=== PATIENT | male | born 1955 | race African-American/Black ===

== ENCOUNTER 2018-08-27 10:45 | Inpatient (IN) | payer OTHER, MEDICAID ==
[2018-08-27] VITALS (8 sets, daily range): BP systolic 103–117; BP diastolic 52–74
[~2018-08-27] VITALS: Ht 182.9 cm; Wt 98.5 kg
[2018-08-27] MEDS ORDERED: SODIUM CHLORIDE 0.9% 1000ML BAG (SEPSIS BOLUS) IV ONE (11:15)
[2018-08-27] MEDS ORDERED: PANTOPRAZOLE 80 MG in SODIUM CHLORIDE 0.9% 100 ML IV STA (11:22)
[2018-08-27] MEDS ORDERED: PANTOPRAZOLE SODIUM 40 MG/VIAL IV STA (11:22)
[2018-08-27] MEDS ORDERED: CEFTRIAXONE 1 G PREMIX 50 ML IV ONE (11:30)
[2018-08-27 12:26] LABS: CHLORIDE 102 mEq/L (98-107)
[2018-08-27 12:29] LABS: ETHANOL BLOOD < 10 mg/dL
[2018-08-27 12:32] LABS: BASOPHILS % 0.3 % (0.0-2.0); EOSINOPHILS % 0.2 % (0.0-5.0); HEMATOCRIT. 31.8 % (42.0-52.0); HEMOGLOBIN. 10.4 g/dL (14.0-18.0); LYMPHOCYTES % 18.8 % (20.0-50.0); MEAN PLATELET VOLUME 10.3 fl (7.4-10.4); MONOCYTES % 8.2 % (2.0-8.0); NEUTROPHILS % 72.5 % (40.0-76.0); PLATELET 88 x1000/uL (130-400); RED BLOOD CELL COUNT 3.45 mill/uL (4.7-6.1); RED CELL DISTRIBUTION WIDTH 14.4 % (11.6-14.6)
[2018-08-27 12:35] LABS: INR 1.6; PARTIAL THROMBOPLASTIN TIME 32.8 sec (23.4-31.0); PROTHROMBIN TIME 15.7 sec (9.1-11.1)
[2018-08-27 14:55] LABS: CLARITY URINE CLOUDY (CLEAR); COLOR URINE DARK YELLOW (YELLOW); KETONES URINE TRACE (NEGATIVE); LEUKOCYTE ESTERASE URINE NEGATIVE (NEGATIVE); NITRITE URINE NEGATIVE (NEGATIVE); OCCULT BLOOD URINE NEGATIVE (NEGATIVE); PROTEIN URINE NEGATIVE (NEGATIVE); SPECIFIC GRAVITY URINE 1.021 (1.005-1.030)
[2018-08-27] MEDS ORDERED: SIMETHICONE 40 MG/0.6 ML 30ML ONE (15:51)
[2018-08-27] MEDS ORDERED: MIDAZOLAM HCL 5 MG/5 ML VIAL IV PRN (16:01)
[2018-08-27] MEDS ORDERED: FENTANYL CITRATE/PF 50MCG/ML 2ML VIAL IV PRN (16:02)
[2018-08-27] MEDS ORDERED: FENTANYL CITRATE/PF 50MCG/ML 2ML VIAL ONE (16:06)
[2018-08-27] MEDS ORDERED: MIDAZOLAM HCL 5 MG/5 ML VIAL ONE (16:06)
[2018-08-27] MEDS ORDERED: SODIUM CHLORIDE 0.9% 10ML VIAL ONE (16:12)
[2018-08-27] MEDS: PANTOPRAZOLE SODIUM 40 MG/VIAL IV SCH (18:48)
[2018-08-27 18:53] LABS: HEMATOCRIT 28.7 % (42.0-52.0); HEMOGLOBIN 9.4 g/dL (14.0-18.0)
[2018-08-27] MEDS ORDERED: OCTREOTIDE 1,000 MCG in SODIUM CHLORIDE 0.9% 100 ML IV ONE ×4 (19:30)
[2018-08-27 19:55] LABS: TOTAL IRON BINDING CAPACITY 169 ug/dL (250-450)
[2018-08-27] MEDS ORDERED: ONDANSETRON HCL 4MG/2ML INJ IV PRN (20:00)
[2018-08-27] MEDS ORDERED: ACETAMINOPHEN 325MG TABLET PO PRN (20:00)
[2018-08-27] MEDS ORDERED: DOCUSATE SODIUM 100MG CAPSULE PO PRN (20:00)
[2018-08-27] MEDS ORDERED: LORAZEPAM 2MG/ML CPJ IV PRN (20:00)
[2018-08-27 20:18] LABS: FOLIC ACID (FOLATE) SERUM 6.3 ng/mL (>5.38)
[2018-08-27] MEDS ORDERED: FOLIC ACID 1 MG, THIAMINE HCL 100 MG, MVI, ADULT NO.1 10 ML in DEXTROSE 5% WATER 1,000 ML IV ONE ×4 (21:00)
[2018-08-27] MEDS: SUCRALFATE 1 G/10 ML UDC PO SCH (21:09)
[2018-08-28] VITALS (12 sets, daily range): BP systolic 95–148; BP diastolic 39–83
[2018-08-28 01:10] LABS: HEMATOCRIT 27.6 % (42.0-52.0)
[2018-08-28] MEDS: SUCRALFATE 1 G/10 ML UDC PO SCH ×4 (06:06→21:42)
[2018-08-28 06:54] LABS: BASOPHILS % 0.5 % (0.0-2.0); EOSINOPHILS % 0.5 % (0.0-5.0); HEMATOCRIT. 24.9 % (42.0-52.0); HEMOGLOBIN. 8.6 g/dL (14.0-18.0); INR 1.5; LYMPHOCYTES % 21.6 % (20.0-50.0); MEAN CORPUSCULAR HEMOGLOBIN 31.6 pg (28.0-32.0); MEAN CORPUSCULAR VOLUME 91.5 fL (80.0-94.0); MEAN PLATELET VOLUME 9.9 fl (7.4-10.4); MONOCYTES % 7.7 % (2.0-8.0); NEUTROPHILS % 69.7 % (40.0-76.0); PLATELET 58 x1000/uL (130-400); PROTHROMBIN TIME 15.4 sec (9.1-11.1); RED BLOOD CELL COUNT 2.72 mill/uL (4.7-6.1); RED CELL DISTRIBUTION WIDTH 14.6 % (11.6-14.6)
[2018-08-28 07:00] LABS: CHLORIDE 113 mEq/L (98-107)
[2018-08-28 07:46] LABS: HEPATITIS B SURFACE ANTIGEN NEGATIVE
[2018-08-28 08:16] LABS: HEPATITIS A AB IGM NEGATIVE (NEGATIVE)
[2018-08-28] MEDS: PANTOPRAZOLE SODIUM 40 MG/VIAL IV SCH ×2 (09:20→17:49)
[2018-08-28] MEDS: SODIUM CHLORIDE 0.9% 1,000 ML IV SCH ×2 (09:21→17:00)
[2018-08-28] MEDS ORDERED: THIA100T72 MT (11:24)
[2018-08-28] MEDS ORDERED: HYDR25TA MT (11:24)
[2018-08-28] MEDS ORDERED: FOLI-43 MT (11:24)
[2018-08-28] MEDS ORDERED: NIFE60TA64 MT (11:24)
[2018-08-28] MEDS ORDERED: METO-539 MT (11:24)
[2018-08-28] MEDS ORDERED: POTASSIUM CHLORIDE 20MEQ/PACKET PO NR (11:30)
[2018-08-28] MEDS: METOPROLOL TARTRATE 25MG TABLET PO SCH ×2 (11:32→21:43)
[2018-08-28 13:09] LABS: HEMATOCRIT 25.5 % (42.0-52.0); HEMOGLOBIN 8.6 g/dL (14.0-18.0)
[2018-08-28 18:53] LABS: HEMOGLOBIN 8.5 g/dL (14.0-18.0)
[2018-08-28] MEDS: AMLODIPINE 5MG TABLET PO SCH (21:42)
[2018-08-29] VITALS (14 sets, daily range): BP systolic 108–148; BP diastolic 60–83
[2018-08-29 00:47] LABS: HEMATOCRIT 25.8 % (42.0-52.0); HEMOGLOBIN 8.4 g/dL (14.0-18.0)
[2018-08-29] MEDS: SODIUM CHLORIDE 0.9% 1,000 ML IV SCH (03:13)
[2018-08-29] MEDS: SUCRALFATE 1 G/10 ML UDC PO SCH (06:41)
[2018-08-29 07:14] LABS: BASOPHILS % 0.8 % (0.0-2.0); EOSINOPHILS % 1.7 % (0.0-5.0); HEMOGLOBIN. 8.2 g/dL (14.0-18.0); LYMPHOCYTES % 26.1 % (20.0-50.0); MEAN CORPUSCULAR HEMOGLOBIN 30.7 pg (28.0-32.0); MEAN PLATELET VOLUME 9.7 fl (7.4-10.4); NEUTROPHILS % 62.4 % (40.0-76.0); PLATELET 62 x1000/uL (130-400); RED BLOOD CELL COUNT 2.68 mill/uL (4.7-6.1); RED CELL DISTRIBUTION WIDTH 15.4 % (11.6-14.6)
[2018-08-29 07:19] LABS: INR 1.5; PARTIAL THROMBOPLASTIN TIME 34.6 sec (23.4-31.0); PROTHROMBIN TIME 15.2 sec (9.1-11.1)
[2018-08-29 07:31] LABS: CHLORIDE 114 mEq/L (98-107)
[2018-08-29 07:53] LABS: LDL CHOLESTEROL 66 mg/dL (5-100)
[2018-08-29 07:54] LABS: HDL CHOLESTEROL 28 mg/dL (40-59)
[2018-08-29] MEDS: PANTOPRAZOLE SODIUM 40 MG/VIAL IV SCH (08:31)
[2018-08-29] MEDS ORDERED: SIMETHICONE 40 MG/0.6 ML 30ML ONE (10:23)
[2018-08-29] MEDS ORDERED: MIDAZOLAM HCL 5 MG/5 ML VIAL ONE (10:41)
[2018-08-29] MEDS ORDERED: PROPOFOL 200MG/20ML VIAL IV ONE ×2 (10:42→10:59)
[2018-08-29] MEDS ORDERED: LIDOCAINE HCL/PF 1% 10 MG/ML 5ML VIAL ONE (10:42)
[2018-08-29] MEDS ORDERED: EPHEDRINE SULFATE 50MG/ML VIAL ONE (11:20)
[2018-08-29] MEDS ORDERED: POTASSIUM CHLORIDE 20MEQ TABLET SR PO NR (11:45)
[2018-08-29] MEDS: SODIUM CHL 0.45% + KCL 20MEQ/L 1,000 ML IV SCH (13:31)
[2018-08-29] MEDS: AMLODIPINE 5MG TABLET PO SCH ×2 (13:31→20:54)
[2018-08-29] MEDS: METOPROLOL TARTRATE 25MG TABLET PO SCH ×2 (13:32→20:54)
[2018-08-29] MEDS: PROPRANOLOL HCL 10MG TABLET PO SCH (20:55)
[2018-08-30] VITALS (10 sets, daily range): BP systolic 110–130; BP diastolic 48–72
[2018-08-30] MEDS: SODIUM CHL 0.45% + KCL 20MEQ/L 1,000 ML IV SCH ×2 (01:51→14:37)
[2018-08-30 06:24] LABS: BASOPHILS % 0.7 % (0.0-2.0); EOSINOPHILS % 2.3 % (0.0-5.0); HEMATOCRIT. 25.4 % (42.0-52.0); HEMOGLOBIN. 8.5 g/dL (14.0-18.0); LYMPHOCYTES % 26.1 % (20.0-50.0); MEAN CORPUSCULAR HEMOGLOBIN 31.1 pg (28.0-32.0); MEAN CORPUSCULAR VOLUME 93.2 fL (80.0-94.0); MEAN PLATELET VOLUME 9.6 fl (7.4-10.4); MONOCYTES % 11.4 % (2.0-8.0); NEUTROPHILS % 59.5 % (40.0-76.0); PLATELET 64 x1000/uL (130-400); RED BLOOD CELL COUNT 2.72 mill/uL (4.7-6.1); RED CELL DISTRIBUTION WIDTH 15.2 % (11.6-14.6)
[2018-08-30 06:40] LABS: CHLORIDE 114 mEq/L (98-107)
[2018-08-30] MEDS ORDERED: OMEPRAZOLE 20MG CAPSULE EXTENDED RELEASE PO SCH (06:50)
[2018-08-30] MEDS: PROPRANOLOL HCL 10MG TABLET PO SCH (08:29)
[2018-08-30] MEDS: METOPROLOL TARTRATE 25MG TABLET PO SCH (08:29)
[2018-08-30] MEDS: AMLODIPINE 5MG TABLET PO SCH (08:30)
[2018-08-30] MEDS ORDERED: POTASSIUM CHLORIDE 20MEQ TABLET SR PO NR (10:30)
[2018-08-30 15:50] LABS: HEMATOCRIT 25.9 % (42.0-52.0); HEMOGLOBIN 8.7 g/dL (14.0-18.0)
== END 2018-08-30 16:55 | disposition home or self-care (01) | DRG 441 ==
LOC: ER 10:45 → 3WST 13:45 → EDBEDREQ 14:09 → ENRESERV 14:27 → 3WST 18:38
PROVIDERS: ADMIT Internal Medicine; ATTEND Internal Medicine
PROC: 0DJ08ZZ Inspection of Upper Intestinal Tract, Via Natural or Artificial Opening Endoscopic (ICD-10-PCS; principal; 2018-08-27)
PROC: 30233N1 Transfusion of Nonautologous Red Blood Cells into Peripheral Vein, Percutaneous Approach (ICD-10-PCS; 2018-08-27)
PROC: 30233K1 Transfusion of Nonautologous Frozen Plasma into Peripheral Vein, Percutaneous Approach (ICD-10-PCS; 2018-08-27)
PROC: 06L38CZ Occlusion of Esophageal Vein with Extraluminal Device, Via Natural or Artificial Opening Endoscopic (ICD-10-PCS; 2018-08-29)
DX: K76.6 Portal hypertension (principal); R57.1 Hypovolemic shock; I85.11 Secondary esophageal varices with bleeding; K29.01 Acute gastritis with bleeding; D62 Acute posthemorrhagic anemia; D68.9 Coagulation defect, unspecified; K70.30 Alcoholic cirrhosis of liver without ascites; K44.9 Diaphragmatic hernia without obstruction or gangrene; I10 Essential (primary) hypertension; E88.09 Other disorders of plasma-protein metabolism, not elsewhere classified; K31.89 Other diseases of stomach and duodenum; F10.20 Alcohol dependence, uncomplicated; D69.6 Thrombocytopenia, unspecified; R16.1 Splenomegaly, not elsewhere classified; F12.10 Cannabis abuse, uncomplicated; F17.210 Nicotine dependence, cigarettes, uncomplicated; Z82.49 Family history of ischemic heart disease and other diseases of the circulatory system
CPT/HCPCS: 36415; 71045; 74176; 76700; 80048; 80061; 80076; 82140; 82607; 82728; 82746; 83036; 83540; 83550; 83735; 83880; 84484; 85014; 85018; 86705; 86709; 86803; 86850; 86900; 86920; 86927; 87340; 93005; 93306; 93970; 96365; 96375; 99291; C9113; G0482; J0696; J2250; J2354; J2704; J3010; J3411; J3480; J3490; J7030; J7040; J7050; J7070; P9016; P9017

== ENCOUNTER → 2018-11-09 | Day surgery (SDC) | payer OTHER, MEDICAID ==
[~2018-11-09] MED LIST: FOLI-43 MT; HYDR25TA MT; LIDOCAINE HCL 1% 20ML VIAL (Pyxis) INJ ONE; METO-539 MT; NIFE60TA64 MT; SODIUM BICARBONATE 4% (2.4MEQ) 5ML VIAL IV ONE; THIA100T72 MT
== END | disposition home or self-care (01) ==
LOC: RAD 12:31
PROVIDERS: ATTEND Internal Medicine Gastroenterology
DX: R18.8 Other ascites (principal)
CPT/HCPCS: 49083; J3490

== ENCOUNTER 2019-01-23 06:09 | Emergency (ER) | payer OTHER, MEDICAID ==
[~2019-01-23] VITALS: Ht 182.9 cm; Wt 91.0 kg
[~2019-01-23 06:09] MED LIST changes: -LIDOCAINE HCL 1% 20ML VIAL (Pyxis) INJ ONE; -SODIUM BICARBONATE 4% (2.4MEQ) 5ML VIAL IV ONE
[2019-01-23 07:23] LABS: HEMATOCRIT. 30.4 % (42.0-52.0); HEMOGLOBIN. 10.1 g/dL (14.0-18.0); MEAN CORPUSCULAR HEMOGLOBIN 28.4 pg (28.0-32.0); MEAN CORPUSCULAR VOLUME 85.3 fL (80.0-94.0); MEAN PLATELET VOLUME 8.4 fl (7.4-10.4); PLATELET 122 x1000/uL (130-400); RED BLOOD CELL COUNT 3.57 mill/uL (4.7-6.1); RED CELL DISTRIBUTION WIDTH 16.7 % (11.6-14.6)
[2019-01-23 07:26] LABS: CHLORIDE 111 mEq/L (98-107)
[2019-01-23 07:29] LABS: INR 1.2; PROTHROMBIN TIME 12.2 sec (9.6-11.0)
[2019-01-23 07:51] LABS: PLATELET ESTIMATE SLIGHTLY DECREASED
[2019-01-23] MEDS ORDERED: LIDOCAINE HCL 1% 20ML VIAL (Pyxis) INJ ONE (08:16)
[2019-01-23] MEDS ORDERED: SODIUM BICARBONATE 4% (2.4MEQ) 5ML VIAL IV ONE (08:16)
[2019-01-23 10:15] VITALS: BP 110/63
== END 2019-01-23 10:15 | disposition home or self-care (01) ==
LOC: ER 06:09
DX: R18.8 Other ascites (principal); F17.200 Nicotine dependence, unspecified, uncomplicated; K92.2 Gastrointestinal hemorrhage, unspecified; K74.60 Unspecified cirrhosis of liver; Z79.899 Other long term (current) drug therapy
CPT/HCPCS: 36415; 49083; 80053; 83690; 85025; 85610; 87070; 87075; 87205; 89050; 99285; J3490

== ENCOUNTER 2019-02-03 18:35 | Emergency (ER) | payer MEDICAID, OTHER ==
[~2019-02-03] VITALS: Ht 182.9 cm; Wt 100.0 kg
[2019-02-03 18:59] VITALS: BP 110/60
== END 2019-02-03 21:05 | disposition home or self-care (01) ==
LOC: ER 20:02
DX: S31.113A Laceration without foreign body of abdominal wall, right lower quadrant without penetration into peritoneal cavity, initial encounter (principal); I10 Essential (primary) hypertension; K74.60 Unspecified cirrhosis of liver; F17.200 Nicotine dependence, unspecified, uncomplicated; Z79.899 Other long term (current) drug therapy; X58.XXXA Exposure to other specified factors, initial encounter; Y93.89 Activity, other specified; Y92.89 Other specified places as the place of occurrence of the external cause; Y99.8 Other external cause status
CPT/HCPCS: 12001; 99283

== ENCOUNTER 2019-02-27 06:46 | Emergency (ER) | payer OTHER, MEDICAID ==
[~2019-02-27] VITALS: Ht 182.9 cm; Wt 91.0 kg
[2019-02-27 07:38] LABS: BASOPHILS % 0.9 % (0.0-2.0); EOSINOPHILS % 1.1 % (0.0-5.0); HEMATOCRIT. 30.4 % (42.0-52.0); HEMOGLOBIN. 10.1 g/dL (14.0-18.0); LYMPHOCYTES % 25.9 % (20.0-50.0); MEAN CORPUSCULAR HEMOGLOBIN 28.8 pg (28.0-32.0); MEAN CORPUSCULAR VOLUME 86.8 fL (80.0-94.0); MEAN PLATELET VOLUME 8.2 fl (7.4-10.4); MONOCYTES % 12.7 % (2.0-8.0); NEUTROPHILS % 59.4 % (40.0-76.0); PLATELET 111 x1000/uL (130-400); RED BLOOD CELL COUNT 3.51 mill/uL (4.7-6.1); RED CELL DISTRIBUTION WIDTH 15.6 % (11.6-14.6)
[2019-02-27 07:45] LABS: CHLORIDE 112 mEq/L (98-107)
[2019-02-27 07:48] LABS: INR 1.2; PROTHROMBIN TIME 11.9 sec (9.6-11.0)
[2019-02-27] MEDS ORDERED: LIDOCAINE HCL 1% 20ML VIAL (Pyxis) INJ ONE (08:34)
[2019-02-27] MEDS ORDERED: SODIUM BICARBONATE 4% (2.4MEQ) 5ML VIAL IV ONE (08:34)
[2019-02-27 12:41] VITALS: BP 130/74
== END 2019-02-27 12:47 | disposition home or self-care (01) ==
LOC: ER 07:11
DX: R18.8 Other ascites (principal); K74.60 Unspecified cirrhosis of liver; I10 Essential (primary) hypertension
CPT/HCPCS: 36415; 49083; 80053; 85025; 85610; 87070; 87205; 89050; 99285; J3490

== ENCOUNTER 2019-03-01 06:31 | Emergency (ER) | payer OTHER, MEDICAID ==
[~2019-03-01] VITALS: Ht 182.9 cm; Wt 91.0 kg
[2019-03-01] MEDS ORDERED: LIDOCAINE HCL/PF 1% 10 MG/ML 5ML VIAL IJ ONE (07:15)
[2019-03-01 07:21] LABS: BASOPHILS % 0.4 % (0.0-2.0); EOSINOPHILS % 1.8 % (0.0-5.0); HEMATOCRIT. 31.8 % (42.0-52.0); HEMOGLOBIN. 10.5 g/dL (14.0-18.0); MEAN CORPUSCULAR HEMOGLOBIN 28.7 pg (28.0-32.0); MEAN CORPUSCULAR VOLUME 86.8 fL (80.0-94.0); MEAN PLATELET VOLUME 8.4 fl (7.4-10.4); MONOCYTES % 10.5 % (2.0-8.0); NEUTROPHILS % 56.3 % (40.0-76.0); PLATELET 126 x1000/uL (130-400); RED BLOOD CELL COUNT 3.66 mill/uL (4.7-6.1); RED CELL DISTRIBUTION WIDTH 15.6 % (11.6-14.6)
[2019-03-01 07:22] LABS: CHLORIDE 111 mEq/L (98-107)
[2019-03-01 07:25] LABS: INR 1.2; PROTHROMBIN TIME 12.4 sec (9.6-11.0)
[2019-03-01] MEDS ORDERED: LIDOCAINE HCL 1% 20ML VIAL (Pyxis) INJ ONE (08:26)
[2019-03-01] MEDS ORDERED: SODIUM BICARBONATE 4% (2.4MEQ) 5ML VIAL IV ONE (08:26)
[2019-03-01 09:36] VITALS: BP 100/62
== END 2019-03-01 12:27 | disposition home or self-care (01) ==
LOC: ER 06:31
DX: S31.119A Laceration without foreign body of abdominal wall, unspecified quadrant without penetration into peritoneal cavity, initial encounter (principal); T85.638A Leakage of other specified internal prosthetic devices, implants and grafts, initial encounter; R18.8 Other ascites; I10 Essential (primary) hypertension; F17.200 Nicotine dependence, unspecified, uncomplicated; K76.9 Liver disease, unspecified; K92.2 Gastrointestinal hemorrhage, unspecified; Z79.899 Other long term (current) drug therapy; X58.XXXA Exposure to other specified factors, initial encounter; Y93.89 Activity, other specified; Y92.89 Other specified places as the place of occurrence of the external cause; Y99.8 Other external cause status
CPT/HCPCS: 12001; 36415; 49083; 71045; 80053; 83605; 84145; 84484; 85025; 85610; 87040; 93005; 99284; J3490

== ENCOUNTER 2019-03-11 06:35 | Emergency (ER) | payer OTHER, MEDICAID ==
[~2019-03-11] VITALS: Ht 182.9 cm; Wt 98.0 kg
[2019-03-11 08:21] LABS: BASOPHILS % 0.4 % (0.0-2.0); EOSINOPHILS % 1.3 % (0.0-5.0); HEMATOCRIT. 31.9 % (42.0-52.0); HEMOGLOBIN. 10.6 g/dL (14.0-18.0); LYMPHOCYTES % 25.6 % (20.0-50.0); MEAN CORPUSCULAR VOLUME 87.1 fL (80.0-94.0); MEAN PLATELET VOLUME 8.1 fl (7.4-10.4); MONOCYTES % 9.3 % (2.0-8.0); NEUTROPHILS % 63.4 % (40.0-76.0); PLATELET 105 x1000/uL (130-400); RED BLOOD CELL COUNT 3.67 mill/uL (4.7-6.1); RED CELL DISTRIBUTION WIDTH 15.4 % (11.6-14.6)
[2019-03-11 08:23] LABS: CHLORIDE 110 mEq/L (98-107)
[2019-03-11 08:27] LABS: INR 1.2; PROTHROMBIN TIME 11.9 sec (9.6-11.0)
[2019-03-11] MEDS ORDERED: LIDOCAINE HCL 1% 20ML VIAL (Pyxis) INJ ONE (08:52)
[2019-03-11] MEDS ORDERED: SODIUM BICARBONATE 4% (2.4MEQ) 5ML VIAL IV ONE (08:52)
[2019-03-11 10:55] VITALS: BP 132/69
== END 2019-03-11 11:01 | disposition home or self-care (01) ==
LOC: ER 06:35
DX: R18.8 Other ascites (principal); F17.210 Nicotine dependence, cigarettes, uncomplicated
CPT/HCPCS: 36415; 49083; 80053; 85025; 85610; 87070; 87075; 87205; 89050; 99285; J3490

== ENCOUNTER 2019-03-19 06:04 | Emergency (ER) | payer OTHER, MEDICAID ==
[~2019-03-19] VITALS: Ht 182.9 cm; Wt 95.9 kg
[2019-03-19 07:31] LABS: BASOPHILS % 0.8 % (0.0-2.0); EOSINOPHILS % 1.1 % (0.0-5.0); HEMATOCRIT. 29.8 % (42.0-52.0); HEMOGLOBIN. 10.1 g/dL (14.0-18.0); LYMPHOCYTES % 29.4 % (20.0-50.0); MEAN CORPUSCULAR HEMOGLOBIN 29.6 pg (28.0-32.0); MEAN CORPUSCULAR VOLUME 87.2 fL (80.0-94.0); MONOCYTES % 11.3 % (2.0-8.0); NEUTROPHILS % 57.4 % (40.0-76.0); PLATELET 105 x1000/uL (130-400); RED BLOOD CELL COUNT 3.42 mill/uL (4.7-6.1); RED CELL DISTRIBUTION WIDTH 15.4 % (11.6-14.6)
[2019-03-19 07:36] LABS: INR 1.1; PARTIAL THROMBOPLASTIN TIME 28.6 sec (23.4-31.0); PROTHROMBIN TIME 11.6 sec (9.6-11.0)
[2019-03-19 07:37] LABS: CHLORIDE 110 mEq/L (98-107)
[2019-03-19] MEDS: SODIUM POLYSTYRENE SULFONATE 15 G/60 ML BOT PO ONE (08:45)
[2019-03-19] MEDS: SODIUM BICARBONATE 8.4% 1 MEQ/ML 50ML SYR IV ONE (08:45)
[2019-03-19] MEDS ORDERED: LIDOCAINE HCL 1% 20ML VIAL (Pyxis) INJ ONE (08:58)
[2019-03-19] MEDS ORDERED: SODIUM BICARBONATE 4% (2.4MEQ) 5ML VIAL IV ONE (08:58)
[2019-03-19 09:03] LABS: CLARITY URINE CLEAR (CLEAR); COLOR URINE DARK YELLOW (YELLOW); KETONES URINE TRACE (NEGATIVE); LEUKOCYTE ESTERASE URINE TRACE (NEGATIVE); NITRITE URINE NEGATIVE (NEGATIVE); OCCULT BLOOD URINE NEGATIVE (NEGATIVE); PH URINE 5.5 (4.5-8.0); PROTEIN URINE NEGATIVE (NEGATIVE); SPECIFIC GRAVITY URINE 1.025 (1.005-1.030)
[2019-03-19 12:38] VITALS: BP 124/63
== END 2019-03-19 13:00 | disposition home or self-care (01) ==
LOC: ER 06:04
DX: R18.8 Other ascites (principal); K74.60 Unspecified cirrhosis of liver; E87.5 Hyperkalemia; Z79.899 Other long term (current) drug therapy
CPT/HCPCS: 36415; 49083; 71045; 80053; 81003; 83690; 83880; 84484; 85025; 85610; 85730; 93005; 96374; 99284; J3490; 51701

== ENCOUNTER 2019-03-19 21:26 | Inpatient (IN) | payer OTHER, MEDICAID ==
[~2019-03-19] VITALS: Ht 182.9 cm; Wt 83.7 kg
[2019-03-19] MEDS ORDERED: METOCLOPRAMIDE HCL 10MG/2ML VIAL IV STA (22:42)
[2019-03-19] MEDS ORDERED: MORPHINE SULFATE 4 MG/ML CPJ (NOT FOR IM USE) IV STA (22:42)
[2019-03-19] MEDS ORDERED: SODIUM CHLORIDE 0.9% 1,000 ML IV ONE (22:42)
[2019-03-19] MEDS ORDERED: DIATR MEGLU/DIATRIZOATE SOLN 30ML ONE (23:15)
[2019-03-19 23:17] LABS: BASOPHILS % 0.3 % (0.0-2.0); EOSINOPHILS % 0.3 % (0.0-5.0); HEMATOCRIT. 34.8 % (42.0-52.0); HEMOGLOBIN. 11.5 g/dL (14.0-18.0); LYMPHOCYTES % 15.3 % (20.0-50.0); MEAN CORPUSCULAR HEMOGLOBIN 29.1 pg (28.0-32.0); MEAN CORPUSCULAR VOLUME 87.6 fL (80.0-94.0); MEAN PLATELET VOLUME 8.1 fl (7.4-10.4); MONOCYTES % 9.1 % (2.0-8.0); PLATELET 133 x1000/uL (130-400); RED BLOOD CELL COUNT 3.97 mill/uL (4.7-6.1); RED CELL DISTRIBUTION WIDTH 15.2 % (11.6-14.6)
[2019-03-19 23:20] LABS: CHLORIDE 108 mEq/L (98-107)
[2019-03-19 23:24] LABS: INR 1.1; PROTHROMBIN TIME 11.4 sec (9.6-11.0)
[2019-03-19 23:25] LABS: CLARITY URINE CLOUDY (CLEAR); COLOR URINE DARK YELLOW (YELLOW); KETONES URINE TRACE (NEGATIVE); LEUKOCYTE ESTERASE URINE TRACE (NEGATIVE); NITRITE URINE NEGATIVE (NEGATIVE); OCCULT BLOOD URINE NEGATIVE (NEGATIVE); PROTEIN URINE NEGATIVE (NEGATIVE); SPECIFIC GRAVITY URINE 1.026 (1.005-1.030)
[2019-03-20 09:00] VITALS: BP 114/87
[2019-03-20] MEDS ORDERED: HYDROCODONE/ACETAMINOPHEN 5/325MG TABLET PO PRN (09:30)
[2019-03-20] MEDS ORDERED: ONDANSETRON HCL 4MG/2ML INJ IV PRN (09:30)
[2019-03-20] MEDS ORDERED: CLONIDINE 0.1MG TABLET PO PRN (09:30)
[2019-03-20] MEDS ORDERED: ACETAMINOPHEN 325MG TABLET PO PRN (09:30)
[2019-03-20] MEDS ORDERED: IPRATROPIUM/ALBUTEROL 0.5-3(2.5)MG/3ML NEB INH PRN (09:30)
[2019-03-20] MEDS ORDERED: LORAZEPAM 0.5MG TABLET PO PRN (09:30)
[2019-03-20] MEDS ORDERED: MORPHINE SULFATE 2 MG/ML CPJ (NOT FOR IM USE) IV PRN (09:30)
[2019-03-20 10:05] VITALS: BP 114/87
[2019-03-20] MEDS ORDERED: LIDOCAINE HCL 1% 20ML VIAL (Pyxis) INJ ONE (11:00)
[2019-03-20] MEDS ORDERED: SODIUM BICARBONATE 4% (2.4MEQ) 5ML VIAL IV ONE (11:01)
[2019-03-20 14:30] LABS: *AMPHETAMINES SCREEN URINE NEGATIVE (NEGATIVE); *BARBITURATES SCREEN URINE NEGATIVE (NEGATIVE); *BENZODIAZEPINES SCREEN URINE NEGATIVE (NEGATIVE); *COCAINE SCREEN URINE NEGATIVE (NEGATIVE)
[2019-03-20 14:31] LABS: CANNABINOID URINE SCREEN NEGATIVE (NEGATIVE); METHADONE URINE SCREEN NEGATIVE (NEGATIVE); OPIATES URINE SCREEN NEGATIVE (NEGATIVE); PHENCYCLIDINE URINE SCREEN NEGATIVE (NEGATIVE)
[2019-03-20 16:00] VITALS: BP 122/71
[2019-03-20 20:00] VITALS: BP 122/64
[2019-03-20] MEDS: PROPRANOLOL HCL 10MG TABLET PO SCH (22:02)
[2019-03-20] MEDS: PANTOPRAZOLE 40MG DR TABLET PO SCH (22:22)
[2019-03-20] MEDS: THIAMINE HCL 100MG TABLET PO SCH (22:23)
[2019-03-20] MEDS: FOLIC ACID 1MG TABLET PO SCH (22:23)
[2019-03-21] VITALS (7 sets, daily range): BP systolic 81–110; BP diastolic 40–64
[2019-03-21 07:35] LABS: CHLORIDE 107 mEq/L (98-107)
[2019-03-21 07:45] LABS: BASOPHILS % 0.4 % (0.0-2.0); EOSINOPHILS % 1.5 % (0.0-5.0); HEMOGLOBIN. 8.8 g/dL (14.0-18.0); LYMPHOCYTES % 24.6 % (20.0-50.0); MEAN CORPUSCULAR HEMOGLOBIN 29.5 pg (28.0-32.0); MEAN CORPUSCULAR VOLUME 87.1 fL (80.0-94.0); MONOCYTES % 13.1 % (2.0-8.0); NEUTROPHILS % 60.4 % (40.0-76.0); PLATELET 85 x1000/uL (130-400); RED BLOOD CELL COUNT 2.99 mill/uL (4.7-6.1); RED CELL DISTRIBUTION WIDTH 14.8 % (11.6-14.6)
[2019-03-21] MEDS: PANTOPRAZOLE 40MG DR TABLET PO SCH ×2 (08:21→16:17)
[2019-03-21] MEDS: FOLIC ACID 1MG TABLET PO SCH (08:22)
[2019-03-21] MEDS: THIAMINE HCL 100MG TABLET PO SCH (08:22)
[2019-03-21] MEDS: PROPRANOLOL HCL 10MG TABLET PO SCH ×2 (08:22→21:33)
[2019-03-21] MEDS ORDERED: ALBUMIN HUMAN 25GM/100ML (25%) IV NR (15:30)
[2019-03-22] VITALS (15 sets, daily range): BP systolic 80–122; BP diastolic 44–78
[2019-03-22 04:16] LABS: HIV SCREEN 4G Non Reactive (Non Reactive)
[2019-03-22 05:39] LABS: CHLORIDE 105 mEq/L (98-107)
[2019-03-22 05:41] LABS: BASOPHILS % 0.7 % (0.0-2.0); EOSINOPHILS % 2.3 % (0.0-5.0); HEMATOCRIT. 29.6 % (42.0-52.0); HEMOGLOBIN. 9.9 g/dL (14.0-18.0); LYMPHOCYTES % 33.2 % (20.0-50.0); MEAN CORPUSCULAR HEMOGLOBIN 29.3 pg (28.0-32.0); MEAN CORPUSCULAR VOLUME 87.5 fL (80.0-94.0); MEAN PLATELET VOLUME 8.3 fl (7.4-10.4); MONOCYTES % 13.7 % (2.0-8.0); NEUTROPHILS % 50.1 % (40.0-76.0); PLATELET 104 x1000/uL (130-400); RED BLOOD CELL COUNT 3.38 mill/uL (4.7-6.1); RED CELL DISTRIBUTION WIDTH 14.6 % (11.6-14.6)
[2019-03-22] MEDS: PROPRANOLOL HCL 10MG TABLET PO SCH ×2 (09:00→21:41)
[2019-03-22] MEDS: FOLIC ACID 1MG TABLET PO SCH (09:02)
[2019-03-22] MEDS: THIAMINE HCL 100MG TABLET PO SCH (09:02)
[2019-03-22] MEDS: PANTOPRAZOLE 40MG DR TABLET PO SCH ×2 (09:02→17:25)
[2019-03-22] MEDS ORDERED: SODIUM BICARBONATE 4% (2.4MEQ) 5ML VIAL IV ONE (15:21)
[2019-03-22] MEDS ORDERED: LIDOCAINE HCL 1% 20ML VIAL (Pyxis) INJ ONE (15:22)
[2019-03-23] VITALS (7 sets, daily range): BP systolic 91–115; BP diastolic 55–74
[2019-03-23 06:51] LABS: HEMATOCRIT. 28.5 % (42.0-52.0); HEMOGLOBIN. 9.6 g/dL (14.0-18.0); MEAN CORPUSCULAR HEMOGLOBIN 29.2 pg (28.0-32.0); MEAN CORPUSCULAR VOLUME 86.6 fL (80.0-94.0); PLATELET 96 x1000/uL (130-400); RED BLOOD CELL COUNT 3.29 mill/uL (4.7-6.1); RED CELL DISTRIBUTION WIDTH 14.7 % (11.6-14.6)
[2019-03-23 06:53] LABS: CHLORIDE 106 mEq/L (98-107)
[2019-03-23] MEDS: PANTOPRAZOLE 40MG DR TABLET PO SCH (08:02)
[2019-03-23] MEDS: FOLIC ACID 1MG TABLET PO SCH (08:02)
[2019-03-23] MEDS: THIAMINE HCL 100MG TABLET PO SCH (08:02)
[2019-03-23] MEDS: PROPRANOLOL HCL 10MG TABLET PO SCH ×2 (08:46→10:24)
[2019-03-23 13:27] LABS: PLATELET ESTIMATE DECREASED
== END 2019-03-23 12:15 | disposition home or self-care (01) | DRG 433 ==
LOC: ER 21:26 → 6EST 03-20 03:01 → EDBEDREQTM 03-20 03:05 → EDBEDREQ 03-20 03:05 → EDBEDREQDT 03-20 03:05 → EDBEDREQSVC 03-20 03:05 → ENRESERV 03-20 07:46 → 3WST 03-21 17:33
PROVIDERS: ADMIT Internal Medicine; ATTEND Internal Medicine
PROC: 0W9G3ZZ Drainage of Peritoneal Cavity, Percutaneous Approach (ICD-10-PCS; principal; 2019-03-20)
PROC: 0W9G3ZZ Drainage of Peritoneal Cavity, Percutaneous Approach (ICD-10-PCS; 2019-03-22)
DX: K70.31 Alcoholic cirrhosis of liver with ascites (principal); D68.9 Coagulation defect, unspecified; I85.10 Secondary esophageal varices without bleeding; K76.6 Portal hypertension; N20.0 Calculus of kidney; E88.09 Other disorders of plasma-protein metabolism, not elsewhere classified; D64.9 Anemia, unspecified; F17.210 Nicotine dependence, cigarettes, uncomplicated; I10 Essential (primary) hypertension; K31.89 Other diseases of stomach and duodenum; K44.9 Diaphragmatic hernia without obstruction or gangrene; I86.4 Gastric varices; K57.30 Diverticulosis of large intestine without perforation or abscess without bleeding; I95.9 Hypotension, unspecified; F19.10 Other psychoactive substance abuse, uncomplicated; Z79.899 Other long term (current) drug therapy
CPT/HCPCS: 36415; 49083; 71045; 74177; 76705; 80048; 80305; 82270; 83605; 87389; 96361; 96374; 96375; 99285; J2270; J2765; J3490; J7030; P9047; Q9963; Q9967

== ENCOUNTER 2019-04-02 05:50 | Emergency (ER) | payer OTHER, MEDICAID ==
[~2019-04-02] VITALS: Ht 182.9 cm; Wt 84.0 kg
[~2019-04-02 05:50] MED LIST changes: -HYDR25TA MT; -METO-539 MT; -NIFE60TA64 MT
[2019-04-02] MEDS ORDERED: FUROSEMIDE 40MG/4ML VIAL IVP ONE (09:00)
[2019-04-02 09:06] LABS: BASOPHILS % 0.9 % (0.0-2.0); EOSINOPHILS % 0.3 % (0.0-5.0); HEMATOCRIT. 31.6 % (42.0-52.0); HEMOGLOBIN. 10.7 g/dL (14.0-18.0); LYMPHOCYTES % 22.8 % (20.0-50.0); MEAN CORPUSCULAR HEMOGLOBIN 29.5 pg (28.0-32.0); MEAN CORPUSCULAR VOLUME 86.8 fL (80.0-94.0); MEAN PLATELET VOLUME 7.8 fl (7.4-10.4); MONOCYTES % 8.8 % (2.0-8.0); NEUTROPHILS % 67.2 % (40.0-76.0); PLATELET 122 x1000/uL (130-400); RED BLOOD CELL COUNT 3.64 mill/uL (4.7-6.1)
[2019-04-02 09:08] LABS: CHLORIDE 111 mEq/L (98-107); INR 1.1; PROTHROMBIN TIME 11.5 sec (9.6-11.0)
[2019-04-02] MEDS ORDERED: SODIUM BICARBONATE 4% (2.4MEQ) 5ML VIAL IV ONE (10:01)
[2019-04-02] MEDS ORDERED: LIDOCAINE HCL 1% 20ML VIAL (Pyxis) INJ ONE (10:01)
[2019-04-02 11:36] VITALS: BP 120/67
== END 2019-04-02 12:33 | disposition home or self-care (01) ==
LOC: ER 05:50
DX: R18.8 Other ascites (principal); D64.9 Anemia, unspecified; E87.5 Hyperkalemia; K74.60 Unspecified cirrhosis of liver; Z79.899 Other long term (current) drug therapy; F17.200 Nicotine dependence, unspecified, uncomplicated
CPT/HCPCS: 36415; 49083; 80053; 85025; 85610; 86850; 86900; 86901; 96374; 99284; J1940; J3490

== ENCOUNTER 2019-04-05 06:35 | Emergency (ER) | payer OTHER, MEDICAID ==
[~2019-04-05] VITALS: Ht 182.9 cm; Wt 84.0 kg
[2019-04-05 07:57] LABS: BASOPHILS % 1.1 % (0.0-2.0); EOSINOPHILS % 1.7 % (0.0-5.0); HEMATOCRIT. 32.5 % (42.0-52.0); HEMOGLOBIN. 10.9 g/dL (14.0-18.0); LYMPHOCYTES % 28.6 % (20.0-50.0); MEAN CORPUSCULAR HEMOGLOBIN 29.1 pg (28.0-32.0); MEAN CORPUSCULAR VOLUME 87.1 fL (80.0-94.0); MEAN PLATELET VOLUME 7.7 fl (7.4-10.4); MONOCYTES % 9.9 % (2.0-8.0); NEUTROPHILS % 58.7 % (40.0-76.0); PLATELET 124 x1000/uL (130-400); RED BLOOD CELL COUNT 3.73 mill/uL (4.7-6.1); RED CELL DISTRIBUTION WIDTH 14.9 % (11.6-14.6)
[2019-04-05 08:03] LABS: CHLORIDE 109 mEq/L (98-107)
[2019-04-05 08:06] LABS: INR 1.1; PARTIAL THROMBOPLASTIN TIME 28.1 sec (23.4-31.0); PROTHROMBIN TIME 11.5 sec (9.6-11.0)
[2019-04-05] MEDS ORDERED: SODIUM BICARBONATE 8.4% 1 MEQ/ML 50ML SYR IV ONE ×2 (08:30→12:15)
[2019-04-05] MEDS ORDERED: SODIUM BICARBONATE 4% (2.4MEQ) 5ML VIAL IV ONE (08:53)
[2019-04-05] MEDS ORDERED: LIDOCAINE HCL 1% 20ML VIAL (Pyxis) INJ ONE (08:54)
[2019-04-05 11:43] LABS: CHLORIDE 111 mEq/L (98-107)
[2019-04-05] MEDS ORDERED: SODIUM POLYSTYRENE SULFONATE 15 G/60 ML BOT PO ONE (12:15)
[2019-04-05 13:29] VITALS: BP 110/62
== END 2019-04-05 13:35 | disposition home or self-care (01) ==
LOC: ER 06:35
DX: R18.8 Other ascites (principal); E87.5 Hyperkalemia; F17.200 Nicotine dependence, unspecified, uncomplicated; I10 Essential (primary) hypertension; Z98.890 Other specified postprocedural states
CPT/HCPCS: 36415; 49083; 71045; 80048; 80053; 83690; 85025; 85610; 85730; 93005; 96374; 96376; 99285; J3490

== ENCOUNTER 2019-04-11 06:29 | Emergency (ER) | payer OTHER ==
[~2019-04-11] VITALS: Ht 182.9 cm; Wt 84.0 kg
[2019-04-11] MEDS ORDERED: LIDOCAINE HCL 1% 20ML VIAL (Pyxis) INJ INJ STA (07:38)
[2019-04-11] MEDS ORDERED: SODIUM BICARBONATE 4% (2.4MEQ) 5ML VIAL IV ONE (09:06)
[2019-04-11] MEDS ORDERED: LIDOCAINE HCL 1% 20ML VIAL (Pyxis) INJ ONE (09:07)
[2019-04-11 10:48] LABS: BASOPHILS % 1.1 % (0.0-2.0); EOSINOPHILS % 1.1 % (0.0-5.0); HEMATOCRIT. 32.5 % (42.0-52.0); HEMOGLOBIN. 10.7 g/dL (14.0-18.0); MEAN CORPUSCULAR HEMOGLOBIN 28.5 pg (28.0-32.0); MEAN CORPUSCULAR VOLUME 86.5 fL (80.0-94.0); MEAN PLATELET VOLUME 7.6 fl (7.4-10.4); MONOCYTES % 10.8 % (2.0-8.0); PLATELET 103 x1000/uL (130-400); RED BLOOD CELL COUNT 3.76 mill/uL (4.7-6.1); RED CELL DISTRIBUTION WIDTH 15.1 % (11.6-14.6)
[2019-04-11 10:53] LABS: CHLORIDE 110 mEq/L (98-107)
[2019-04-11 10:57] LABS: INR 1.1; PROTHROMBIN TIME 11.4 sec (9.6-11.0)
[2019-04-11 11:25] VITALS: BP 113/66
== END 2019-04-11 11:29 | disposition home or self-care (01) ==
LOC: ER 06:29
DX: R18.8 Other ascites (principal); K76.9 Liver disease, unspecified; F17.210 Nicotine dependence, cigarettes, uncomplicated
CPT/HCPCS: 36415; 49083; 80053; 85025; 85610; 87070; 87075; 87205; 89050; 99285; J3490

== ENCOUNTER 2019-04-17 06:27 | Emergency (ER) | payer OTHER ==
[~2019-04-17] VITALS: Ht 182.9 cm; Wt 84.0 kg
[2019-04-17 07:12] LABS: HEMATOCRIT. 31.1 % (42.0-52.0); HEMOGLOBIN. 10.4 g/dL (14.0-18.0); LYMPHOCYTES % 28.9 % (20.0-50.0); MEAN CORPUSCULAR HEMOGLOBIN 28.9 pg (28.0-32.0); MEAN CORPUSCULAR VOLUME 86.9 fL (80.0-94.0); MEAN PLATELET VOLUME 8.1 fl (7.4-10.4); MONOCYTES % 10.8 % (2.0-8.0); NEUTROPHILS % 57.3 % (40.0-76.0); PLATELET 94 x1000/uL (130-400); RED BLOOD CELL COUNT 3.58 mill/uL (4.7-6.1); RED CELL DISTRIBUTION WIDTH 14.7 % (11.6-14.6)
[2019-04-17 07:17] LABS: CLARITY URINE CLEAR (CLEAR); COLOR URINE YELLOW (YELLOW); KETONES URINE NEGATIVE (NEGATIVE); LEUKOCYTE ESTERASE URINE NEGATIVE (NEGATIVE); NITRITE URINE NEGATIVE (NEGATIVE); OCCULT BLOOD URINE NEGATIVE (NEGATIVE); PH URINE 5.5 (4.5-8.0); PROTEIN URINE NEGATIVE (NEGATIVE); SPECIFIC GRAVITY URINE 1.025 (1.005-1.030)
[2019-04-17 07:21] LABS: CHLORIDE 112 mEq/L (98-107)
[2019-04-17 07:22] LABS: INR 1.1; PROTHROMBIN TIME 11.7 sec (9.6-11.0)
[2019-04-17] MEDS ORDERED: LIDOCAINE HCL 1% 20ML VIAL (Pyxis) INJ ONE (07:27)
[2019-04-17] MEDS ORDERED: SODIUM BICARBONATE 4% (2.4MEQ) 5ML VIAL IV ONE (07:28)
[2019-04-17 09:47] VITALS: BP 98/60
== END 2019-04-18 19:46 | disposition home or self-care (01) ==
LOC: ER 06:43
DX: R18.8 Other ascites (principal); K76.9 Liver disease, unspecified; F17.210 Nicotine dependence, cigarettes, uncomplicated
CPT/HCPCS: 36415; 49083; 80053; 81003; 85025; 85610; 87070; 87075; 87205; 89050; 99285; J3490

== ENCOUNTER 2019-04-24 06:27 | Emergency (ER) | payer OTHER, MEDICAID ==
[~2019-04-24] VITALS: Ht 190.5 cm; Wt 79.0 kg
[2019-04-24 07:27] LABS: BASOPHILS % 0.8 % (0.0-2.0); EOSINOPHILS % 2.3 % (0.0-5.0); HEMATOCRIT. 29.8 % (42.0-52.0); HEMOGLOBIN. 10.1 g/dL (14.0-18.0); LYMPHOCYTES % 26.8 % (20.0-50.0); MEAN CORPUSCULAR HEMOGLOBIN 28.9 pg (28.0-32.0); MEAN CORPUSCULAR VOLUME 85.4 fL (80.0-94.0); MEAN PLATELET VOLUME 7.9 fl (7.4-10.4); MONOCYTES % 10.7 % (2.0-8.0); NEUTROPHILS % 59.4 % (40.0-76.0); PLATELET 98 x1000/uL (130-400); RED BLOOD CELL COUNT 3.49 mill/uL (4.7-6.1); RED CELL DISTRIBUTION WIDTH 14.6 % (11.6-14.6)
[2019-04-24 07:35] LABS: CHLORIDE 110 mEq/L (98-107)
[2019-04-24 07:36] LABS: INR 1.1; PROTHROMBIN TIME 11.7 sec (9.6-11.0)
[2019-04-24] MEDS ORDERED: LIDOCAINE HCL 1% 20ML VIAL (Pyxis) INJ ONE (08:08)
[2019-04-24] MEDS ORDERED: SODIUM BICARBONATE 4% (2.4MEQ) 5ML VIAL IV ONE (08:09)
[2019-04-24 09:44] VITALS: BP 99/66
== END 2019-04-24 09:46 | disposition home or self-care (01) ==
LOC: ER 06:27
DX: R18.8 Other ascites (principal); K76.9 Liver disease, unspecified
CPT/HCPCS: 36415; 49083; 80053; 85025; 85610; 99284; J3490

== ENCOUNTER 2019-04-29 06:41 | Emergency (ER) | payer OTHER, MEDICAID ==
[~2019-04-29] VITALS: Ht 182.9 cm; Wt 80.0 kg
[2019-04-29 09:20] LABS: BASOPHILS % 0.6 % (0.0-2.0); EOSINOPHILS % 1.7 % (0.0-5.0); HEMATOCRIT. 35.7 % (42.0-52.0); HEMOGLOBIN. 11.8 g/dL (14.0-18.0); LYMPHOCYTES % 26.5 % (20.0-50.0); MEAN CORPUSCULAR VOLUME 87.7 fL (80.0-94.0); MEAN PLATELET VOLUME 8.2 fl (7.4-10.4); NEUTROPHILS % 62.2 % (40.0-76.0); PLATELET 113 x1000/uL (130-400); RED BLOOD CELL COUNT 4.07 mill/uL (4.7-6.1); RED CELL DISTRIBUTION WIDTH 15.1 % (11.6-14.6)
[2019-04-29 09:27] LABS: INR 1.1; PARTIAL THROMBOPLASTIN TIME 29.2 sec (23.4-31.0)
[2019-04-29 12:34] VITALS: BP 105/59
== END 2019-04-29 12:54 | disposition home or self-care (01) ==
LOC: ER 07:21
DX: R18.8 Other ascites (principal)
CPT/HCPCS: 36415; 49083; 85025; 85610; 85730; 99285; J3490

== ENCOUNTER 2019-05-07 06:28 | Emergency (ER) | payer OTHER, MEDICAID ==
[~2019-05-07] VITALS: Ht 182.9 cm; Wt 80.0 kg
[2019-05-07 08:24] LABS: BASOPHILS % 0.6 % (0.0-2.0); EOSINOPHILS % 0.9 % (0.0-5.0); HEMATOCRIT. 34.1 % (42.0-52.0); MEAN CORPUSCULAR HEMOGLOBIN 27.9 pg (28.0-32.0); MEAN CORPUSCULAR VOLUME 86.9 fL (80.0-94.0); MEAN PLATELET VOLUME 7.7 fl (7.4-10.4); MONOCYTES % 10.9 % (2.0-8.0); NEUTROPHILS % 64.6 % (40.0-76.0); PLATELET 106 x1000/uL (130-400); RED BLOOD CELL COUNT 3.93 mill/uL (4.7-6.1); RED CELL DISTRIBUTION WIDTH 15.1 % (11.6-14.6)
[2019-05-07 08:31] LABS: CHLORIDE 111 mEq/L (98-107)
[2019-05-07 08:33] LABS: INR 1.1; PROTHROMBIN TIME 11.5 sec (9.6-11.0)
[2019-05-07] MEDS ORDERED: SODIUM BICARBONATE 4% (2.4MEQ) 5ML VIAL IV ONE (08:37)
[2019-05-07] MEDS ORDERED: LIDOCAINE HCL 1% 20ML VIAL (Pyxis) INJ ONE (08:37)
[2019-05-07 12:30] VITALS: BP 118/84
== END 2019-05-07 13:12 | disposition home or self-care (01) ==
LOC: ER 06:28
DX: R18.8 Other ascites (principal); K76.9 Liver disease, unspecified; Z87.19 Personal history of other diseases of the digestive system
CPT/HCPCS: 36415; 49083; 80053; 83690; 85025; 85610; 86850; 86900; 86901; 99285; J3490

== ENCOUNTER 2019-05-13 07:05 | Emergency (ER) | payer OTHER, MEDICAID ==
[~2019-05-13] VITALS: Ht 182.9 cm; Wt 81.0 kg
[2019-05-13 10:03] LABS: CHLORIDE 112 mEq/L (98-107)
[2019-05-13 10:13] LABS: INR 1.1; PROTHROMBIN TIME 11.5 sec (9.6-11.0)
[2019-05-13 10:17] LABS: BASOPHILS % 0.9 % (0.0-2.0); EOSINOPHILS % 0.7 % (0.0-5.0); HEMOGLOBIN. 11.3 g/dL (14.0-18.0); LYMPHOCYTES % 25.5 % (20.0-50.0); MEAN CORPUSCULAR HEMOGLOBIN 28.7 pg (28.0-32.0); MEAN CORPUSCULAR VOLUME 86.8 fL (80.0-94.0); MONOCYTES % 10.1 % (2.0-8.0); NEUTROPHILS % 62.8 % (40.0-76.0); PLATELET 105 x1000/uL (130-400); RED BLOOD CELL COUNT 3.92 mill/uL (4.7-6.1); RED CELL DISTRIBUTION WIDTH 14.9 % (11.6-14.6)
[2019-05-13 11:00] VITALS: BP 79/81
[2019-05-13] MEDS ORDERED: LIDOCAINE HCL 1% 20ML VIAL (Pyxis) INJ ONE (11:25)
[2019-05-13] MEDS ORDERED: SODIUM BICARBONATE 4% (2.4MEQ) 5ML VIAL IV ONE (11:25)
== END 2019-05-13 13:51 | disposition home or self-care (01) ==
LOC: ER 07:26
DX: K74.60 Unspecified cirrhosis of liver (principal); R18.8 Other ascites; E87.5 Hyperkalemia; D64.9 Anemia, unspecified; F17.210 Nicotine dependence, cigarettes, uncomplicated; Z71.6 Tobacco abuse counseling
CPT/HCPCS: 36415; 49083; 80053; 83690; 85025; 85610; 87070; 87075; 87205; 89050; 99285; 99406; J3490

== ENCOUNTER 2019-05-17 06:40 | Emergency (ER) | payer OTHER, MEDICAID ==
[~2019-05-17] VITALS: Ht 198.1 cm; Wt 80.0 kg
[2019-05-17 07:59] LABS: BASOPHILS % 0.4 % (0.0-2.0); EOSINOPHILS % 2.2 % (0.0-5.0); HEMOGLOBIN. 10.5 g/dL (14.0-18.0); LYMPHOCYTES % 29.8 % (20.0-50.0); MEAN CORPUSCULAR HEMOGLOBIN 28.4 pg (28.0-32.0); MEAN CORPUSCULAR VOLUME 86.2 fL (80.0-94.0); MONOCYTES % 12.3 % (2.0-8.0); NEUTROPHILS % 55.3 % (40.0-76.0); PLATELET 108 x1000/uL (130-400); RED BLOOD CELL COUNT 3.71 mill/uL (4.7-6.1); RED CELL DISTRIBUTION WIDTH 14.6 % (11.6-14.6)
[2019-05-17 08:02] LABS: CHLORIDE 109 mEq/L (98-107)
[2019-05-17 08:05] LABS: INR 1.2
[2019-05-17] MEDS ORDERED: LIDOCAINE HCL 1% 20ML VIAL (Pyxis) INJ ONE (08:50)
[2019-05-17] MEDS ORDERED: SODIUM BICARBONATE 4% (2.4MEQ) 5ML VIAL IV ONE (08:50)
[2019-05-17 10:36] VITALS: BP 112/62
== END 2019-05-17 10:39 | disposition home or self-care (01) ==
LOC: ER 06:40
DX: R18.8 Other ascites (principal); F17.200 Nicotine dependence, unspecified, uncomplicated; Z98.890 Other specified postprocedural states
CPT/HCPCS: 36415; 49083; 80053; 85025; 85610; 87070; 87075; 87205; 89050; 99285; J3490

== ENCOUNTER 2019-05-23 06:05 | Emergency (ER) | payer OTHER, MEDICAID ==
[~2019-05-23] VITALS: Ht 182.9 cm; Wt 80.0 kg
[2019-05-23 07:57] VITALS: BP 99/55
[2019-05-23] MEDS ORDERED: LIDOCAINE HCL 1% 20ML VIAL (Pyxis) INJ ONE (07:59)
[2019-05-23] MEDS ORDERED: SODIUM BICARBONATE 4% (2.4MEQ) 5ML VIAL IV ONE (07:59)
[2019-05-23 08:01] LABS: BASOPHILS % 0.5 % (0.0-2.0); EOSINOPHILS % 1.5 % (0.0-5.0); HEMATOCRIT. 33.1 % (42.0-52.0); LYMPHOCYTES % 28.2 % (20.0-50.0); MEAN CORPUSCULAR HEMOGLOBIN 28.7 pg (28.0-32.0); MEAN CORPUSCULAR VOLUME 86.7 fL (80.0-94.0); MEAN PLATELET VOLUME 8.1 fl (7.4-10.4); MONOCYTES % 11.9 % (2.0-8.0); NEUTROPHILS % 57.9 % (40.0-76.0); PLATELET 122 x1000/uL (130-400); RED BLOOD CELL COUNT 3.82 mill/uL (4.7-6.1); RED CELL DISTRIBUTION WIDTH 14.8 % (11.6-14.6)
[2019-05-23 08:08] LABS: CHLORIDE 109 mEq/L (98-107)
[2019-05-23 08:09] LABS: INR 1.1; PROTHROMBIN TIME 11.6 sec (9.6-11.0)
== END 2019-05-23 09:38 | disposition home or self-care (01) ==
LOC: ER 06:05
DX: R18.8 Other ascites (principal); K76.9 Liver disease, unspecified; I11.9 Hypertensive heart disease without heart failure; F17.210 Nicotine dependence, cigarettes, uncomplicated
CPT/HCPCS: 36415; 49083; 80053; 85025; 85610; 87070; 87075; 87205; 89050; 99285; J3490

== ENCOUNTER 2019-05-30 06:34 | Emergency (ER) | payer OTHER, MEDICAID ==
[~2019-05-30] VITALS: Ht 182.9 cm; Wt 63.0 kg
[2019-05-30 08:21] LABS: BASOPHILS % 0.6 % (0.0-2.0); EOSINOPHILS % 2.9 % (0.0-5.0); HEMATOCRIT. 33.5 % (42.0-52.0); HEMOGLOBIN. 10.9 g/dL (14.0-18.0); LYMPHOCYTES % 31.6 % (20.0-50.0); MEAN CORPUSCULAR HEMOGLOBIN 28.2 pg (28.0-32.0); MEAN CORPUSCULAR VOLUME 86.9 fL (80.0-94.0); MEAN PLATELET VOLUME 8.3 fl (7.4-10.4); MONOCYTES % 10.7 % (2.0-8.0); NEUTROPHILS % 54.2 % (40.0-76.0); PLATELET 122 x1000/uL (130-400); RED BLOOD CELL COUNT 3.86 mill/uL (4.7-6.1)
[2019-05-30] MEDS ORDERED: LIDOCAINE HCL 1% 20ML VIAL (Pyxis) INJ ONE (08:25)
[2019-05-30] MEDS ORDERED: SODIUM BICARBONATE 4% (2.4MEQ) 5ML VIAL IV ONE (08:26)
[2019-05-30 08:29] LABS: CHLORIDE 113 mEq/L (98-107)
[2019-05-30 08:30] LABS: INR 1.1; PROTHROMBIN TIME 11.4 sec (9.6-11.0)
[2019-05-30 10:13] VITALS: BP 105/56
== END 2019-05-30 10:27 | disposition home or self-care (01) ==
LOC: ER 06:34
DX: R18.8 Other ascites (principal); K74.60 Unspecified cirrhosis of liver; I10 Essential (primary) hypertension; F17.210 Nicotine dependence, cigarettes, uncomplicated
CPT/HCPCS: 36415; 49083; 80053; 85025; 85610; 99285; J3490

== ENCOUNTER 2019-06-06 06:15 | Emergency (ER) | payer OTHER, MEDICAID ==
[~2019-06-06] VITALS: Ht 182.9 cm; Wt 80.0 kg
[2019-06-06 08:51] LABS: BASOPHILS % 1.2 % (0.0-2.0); EOSINOPHILS % 2.9 % (0.0-5.0); HEMATOCRIT. 31.3 % (42.0-52.0); HEMOGLOBIN. 10.2 g/dL (14.0-18.0); LYMPHOCYTES % 33.6 % (20.0-50.0); MEAN CORPUSCULAR HEMOGLOBIN 28.4 pg (28.0-32.0); MEAN CORPUSCULAR VOLUME 86.9 fL (80.0-94.0); MEAN PLATELET VOLUME 8.3 fl (7.4-10.4); MONOCYTES % 10.6 % (2.0-8.0); NEUTROPHILS % 51.7 % (40.0-76.0); PLATELET 114 x1000/uL (130-400); RED CELL DISTRIBUTION WIDTH 14.5 % (11.6-14.6)
[2019-06-06 08:57] LABS: CHLORIDE 115 mEq/L (98-107); INR 1.1; PROTHROMBIN TIME 11.4 sec (9.6-11.0)
[2019-06-06 13:00] VITALS: BP 100/59
== END 2019-06-06 13:24 | disposition home or self-care (01) ==
LOC: ER 06:15
DX: R18.8 Other ascites (principal); K74.60 Unspecified cirrhosis of liver; F17.210 Nicotine dependence, cigarettes, uncomplicated; Z71.6 Tobacco abuse counseling
CPT/HCPCS: 36415; 49083; 87075; 99285; 99406

== ENCOUNTER 2019-06-11 07:56 | Inpatient (IN) | payer OTHER, MEDICAID ==
[~2019-06-11] VITALS: Ht 182.9 cm; Wt 80.8 kg
[2019-06-11] MEDS ORDERED: SODIUM CHLORIDE 0.9% 1000ML BAG (SEPSIS BOLUS) IV ONE (08:45)
[2019-06-11] MEDS ORDERED: SODIUM CHLORIDE 0.9% 1,000 ML IV ONE (08:57)
[2019-06-11] MEDS ORDERED: ALBUMIN HUMAN 25GM/100ML (25%) IV ONE (09:00)
[2019-06-11 09:25] LABS: BASOPHILS % 0.3 % (0.0-2.0); EOSINOPHILS % 0.5 % (0.0-5.0); HEMATOCRIT. 34.9 % (42.0-52.0); HEMOGLOBIN. 11.3 g/dL (14.0-18.0); LYMPHOCYTES % 10.2 % (20.0-50.0); MEAN CORPUSCULAR HEMOGLOBIN 27.7 pg (28.0-32.0); MEAN CORPUSCULAR VOLUME 85.5 fL (80.0-94.0); MEAN PLATELET VOLUME 8.6 fl (7.4-10.4); MONOCYTES % 9.5 % (2.0-8.0); NEUTROPHILS % 79.5 % (40.0-76.0); PLATELET 122 x1000/uL (130-400); RED BLOOD CELL COUNT 4.08 mill/uL (4.7-6.1); RED CELL DISTRIBUTION WIDTH 14.6 % (11.6-14.6)
[2019-06-11 09:32] LABS: CHLORIDE 113 mEq/L (98-107)
[2019-06-11 09:35] LABS: INR 1.1; PROTHROMBIN TIME 11.4 sec (9.6-11.0)
[2019-06-11] MEDS ORDERED: CEFTRIAXONE 1 G PREMIX 50 ML IV SCH (09:45)
[2019-06-11 11:07] LABS: CLARITY URINE CLOUDY (CLEAR); COLOR URINE DARK YELLOW (YELLOW); KETONES URINE 1+ (NEGATIVE); LEUKOCYTE ESTERASE URINE 1+ (NEGATIVE); NITRITE URINE NEGATIVE (NEGATIVE); OCCULT BLOOD URINE NEGATIVE (NEGATIVE); PROTEIN URINE 1+ (NEGATIVE); SPECIFIC GRAVITY URINE 1.026 (1.005-1.030)
[2019-06-11] MEDS ORDERED: AZITHROMYCIN 500 MG in DEXT 5% WATER 250 ML IV SCH (14:15)
[2019-06-11 17:30] VITALS: BP 94/56
[2019-06-11 17:33] VITALS: BP 94/56
[2019-06-11] MEDS ORDERED: TRAMADOL 50MG TABLET PO PRN (18:00)
[2019-06-11] MEDS ORDERED: SODIUM POLYSTYRENE SULFONATE 15 G/60 ML BOT PO ONE (18:00)
[2019-06-11 20:00] VITALS: BP 94/51
[2019-06-11] MEDS ORDERED: SODIUM POLYSTYRENE SULFONATE 15 G/60 ML BOT PO NR (20:00)
[2019-06-11] MEDS ORDERED: ALBUMIN HUMAN 12.5GM/50ML (25%) IV NR (20:00)
[2019-06-11] MEDS ORDERED: MIDODRINE HCL 2.5MG TABLET PO SCH (21:00)
[2019-06-11] MEDS ORDERED: CITRIC ACID/SODIUM CITRATE SOLN 30ML UDC PO SCH (21:00)
[2019-06-11 22:00] VITALS: BP 86/59
[2019-06-11 22:38] LABS: BG BASE EXCESS -8.2 mmol/L (-2.0-2.0); BG CARBOXYHEMOGLOBIN 0.3 % (0.5-1.5); BG FRACTION INSPIRED OXYGEN 21; BG HCO3 ACT 14.7 mmol/L (22.0-26.0); BG METHEMOGLOBIN 0.2 % (0.0-1.5); BG OXYHEMOGLOBIN 97.5 % (94.0-97.0); BG PCO2 22.7 mmHg (35.0-45.0); BG PH 7.429 (7.350-7.450); BG PO2 114.5 mmHg (75.0-100.0); BG SAMPLE SITE LEFT RADIAL; BG TOTAL HEMOGLOBIN 9.5 g/dL (12.0-18.0); BG VENT MODE ROOM AIR
[2019-06-12] VITALS (8 sets, daily range): BP systolic 79–94; BP diastolic 44–64
[2019-06-12 08:05] LABS: BASOPHILS % 0.8 % (0.0-2.0); EOSINOPHILS % 2.2 % (0.0-5.0); HEMATOCRIT. 28.9 % (42.0-52.0); HEMOGLOBIN. 9.4 g/dL (14.0-18.0); LYMPHOCYTES % 23.9 % (20.0-50.0); MEAN CORPUSCULAR HEMOGLOBIN 28.4 pg (28.0-32.0); MEAN CORPUSCULAR VOLUME 87.2 fL (80.0-94.0); MEAN PLATELET VOLUME 8.5 fl (7.4-10.4); MONOCYTES % 10.9 % (2.0-8.0); NEUTROPHILS % 62.2 % (40.0-76.0); PLATELET 98 x1000/uL (130-400); RED BLOOD CELL COUNT 3.31 mill/uL (4.7-6.1); RED CELL DISTRIBUTION WIDTH 14.9 % (11.6-14.6)
[2019-06-12 08:15] LABS: PHOSPHORUS 3.6 mg/dL (2.5-4.9)
[2019-06-12] MEDS: PANTOPRAZOLE SODIUM 40 MG/VIAL IV SCH (09:44)
[2019-06-12] MEDS: MIDODRINE HCL 5MG TABLET PO SCH ×3 (09:44→17:19)
[2019-06-12] MEDS ORDERED: ALBUMIN HUMAN 25GM/100ML (25%) IV SCH ×2 (11:00→22:00)
[2019-06-12] MEDS ORDERED: LIDOCAINE HCL 1% 20ML VIAL (Pyxis) INJ ONE (11:23)
[2019-06-12] MEDS ORDERED: SODIUM BICARBONATE 4% (2.4MEQ) 5ML VIAL IV ONE (11:23)
[2019-06-12] MEDS: CEFTRIAXONE 1 G PREMIX 50 ML IV SCH (16:07)
[2019-06-12] MEDS ORDERED: MIDODRINE HCL 5MG TABLET PO SCH (21:15)
[2019-06-13] VITALS (12 sets, daily range): BP systolic 78–104; BP diastolic 41–56
[2019-06-13 04:06] LABS: *AMPHETAMINES SCREEN URINE NEGATIVE (NEGATIVE); *BARBITURATES SCREEN URINE NEGATIVE (NEGATIVE)
[2019-06-13 04:07] LABS: *BENZODIAZEPINES SCREEN URINE NEGATIVE (NEGATIVE); *COCAINE SCREEN URINE NEGATIVE (NEGATIVE); CANNABINOID URINE SCREEN NEGATIVE (NEGATIVE); METHADONE URINE SCREEN NEGATIVE (NEGATIVE); OPIATES URINE SCREEN NEGATIVE (NEGATIVE); PHENCYCLIDINE URINE SCREEN NEGATIVE (NEGATIVE)
[2019-06-13] MEDS: MIDODRINE HCL 5MG TABLET PO SCH ×3 (05:15→21:40)
[2019-06-13 07:07] LABS: BASOPHILS % 0.5 % (0.0-2.0); EOSINOPHILS % 2.3 % (0.0-5.0); HEMATOCRIT. 23.8 % (42.0-52.0); HEMOGLOBIN. 7.9 g/dL (14.0-18.0); LYMPHOCYTES % 35.1 % (20.0-50.0); MEAN CORPUSCULAR HEMOGLOBIN 28.2 pg (28.0-32.0); MEAN PLATELET VOLUME 8.5 fl (7.4-10.4); MONOCYTES % 11.6 % (2.0-8.0); NEUTROPHILS % 50.5 % (40.0-76.0); PLATELET 65 x1000/uL (130-400); RED CELL DISTRIBUTION WIDTH 14.1 % (11.6-14.6)
[2019-06-13 08:24] LABS: CHLORIDE 117 mEq/L (98-107)
[2019-06-13 08:31] LABS: PHOSPHORUS 3.5 mg/dL (2.5-4.9)
[2019-06-13] MEDS ORDERED: ALBUMIN HUMAN 25GM/100ML (25%) IV NR (09:30)
[2019-06-13] MEDS: PANTOPRAZOLE SODIUM 40 MG/VIAL IV SCH (09:42)
[2019-06-13] MEDS: CEFTRIAXONE 1 G PREMIX 50 ML IV SCH (12:15)
[2019-06-13] MEDS: CEFAZOLIN 1000MG PREMIX 50 ML IV SCH (23:16)
[2019-06-14] VITALS (11 sets, daily range): BP systolic 95–127; BP diastolic 53–68
[2019-06-14] MEDS: MIDODRINE HCL 5MG TABLET PO SCH ×3 (05:28→21:29)
[2019-06-14] MEDS: CEFAZOLIN 1000MG PREMIX 50 ML IV SCH ×3 (06:19→22:46)
[2019-06-14 06:46] LABS: BASOPHILS % 0.5 % (0.0-2.0); EOSINOPHILS % 3.2 % (0.0-5.0); HEMATOCRIT. 24.3 % (42.0-52.0); HEMOGLOBIN. 8.2 g/dL (14.0-18.0); LYMPHOCYTES % 30.7 % (20.0-50.0); MEAN CORPUSCULAR HEMOGLOBIN 28.5 pg (28.0-32.0); MEAN CORPUSCULAR VOLUME 84.4 fL (80.0-94.0); MEAN PLATELET VOLUME 8.2 fl (7.4-10.4); MONOCYTES % 11.8 % (2.0-8.0); NEUTROPHILS % 53.8 % (40.0-76.0); PLATELET 63 x1000/uL (130-400); RED BLOOD CELL COUNT 2.87 mill/uL (4.7-6.1); RED CELL DISTRIBUTION WIDTH 14.1 % (11.6-14.6)
[2019-06-14] MEDS: OMEPRAZOLE 20MG CAPSULE EXTENDED RELEASE PO SCH (09:28)
[2019-06-14 09:36] LABS: CHLORIDE 117 mEq/L (98-107)
[2019-06-14 09:44] LABS: PHOSPHORUS 2.2 mg/dL (2.5-4.9)
[2019-06-14] MEDS: POTASSIUM-SODIUM PHOSPHATE POWDER PACKET PO SCH ×2 (15:02→18:21)
[2019-06-15] VITALS (9 sets, daily range): BP systolic 91–117; BP diastolic 44–71
[2019-06-15] MEDS: MIDODRINE HCL 5MG TABLET PO SCH ×2 (05:39→14:16)
[2019-06-15] MEDS: CEFAZOLIN 1000MG PREMIX 50 ML IV SCH ×2 (06:41→14:17)
[2019-06-15 07:52] LABS: HEMOGLOBIN. 8.4 g/dL (14.0-18.0); MEAN CORPUSCULAR HEMOGLOBIN 28.5 pg (28.0-32.0); MEAN CORPUSCULAR VOLUME 85.4 fL (80.0-94.0); MEAN PLATELET VOLUME 8.1 fl (7.4-10.4); PLATELET 64 x1000/uL (130-400); RED BLOOD CELL COUNT 2.93 mill/uL (4.7-6.1)
[2019-06-15 08:11] LABS: CHLORIDE 116 mEq/L (98-107)
[2019-06-15 08:18] LABS: PHOSPHORUS 2.4 mg/dL (2.5-4.9)
[2019-06-15] MEDS: OMEPRAZOLE 20MG CAPSULE EXTENDED RELEASE PO SCH (08:49)
[2019-06-15] MEDS: POTASSIUM-SODIUM PHOSPHATE POWDER PACKET PO SCH (08:50)
[2019-06-15] MEDS ORDERED: FUROSEMIDE 20MG TABLET PO SCH (12:00)
[2019-06-15 21:30] LABS: PLATELET ESTIMATE DECREASED
== END 2019-06-15 16:55 | disposition home or self-care (01) | DRG 871 ==
LOC: ER 07:56 → 5EST 12:01 → EDBEDREQTM 12:04 → EDBEDREQ 12:04 → ENRESERV 15:28
PROVIDERS: ADMIT Internal Medicine; ATTEND Internal Medicine
PROC: 0W9G3ZZ Drainage of Peritoneal Cavity, Percutaneous Approach (ICD-10-PCS; principal; 2019-06-12)
DX: A41.9 Sepsis, unspecified organism (principal); E43 Unspecified severe protein-calorie malnutrition; N39.0 Urinary tract infection, site not specified; N17.9 Acute kidney failure, unspecified; K76.6 Portal hypertension; D68.9 Coagulation defect, unspecified; I50.22 Chronic systolic (congestive) heart failure; I42.9 Cardiomyopathy, unspecified; E87.3 Alkalosis; N20.0 Calculus of kidney; E87.5 Hyperkalemia; D64.9 Anemia, unspecified; D69.6 Thrombocytopenia, unspecified; K70.31 Alcoholic cirrhosis of liver with ascites; F10.10 Alcohol abuse, uncomplicated; I95.89 Other hypotension; I11.0 Hypertensive heart disease with heart failure; I34.0 Nonrheumatic mitral (valve) insufficiency; F17.210 Nicotine dependence, cigarettes, uncomplicated; I25.10 Atherosclerotic heart disease of native coronary artery without angina pectoris; Z82.49 Family history of ischemic heart disease and other diseases of the circulatory system; I25.2 Old myocardial infarction; Z68.24 Body mass index [BMI] 24.0-24.9, adult; Z79.899 Other long term (current) drug therapy
CPT/HCPCS: 36415; 36600; 49083; 71045; 80048; 80305; 81003; 82375; 82805; 83605; 83735; 84100; 84145; 84300; 84484; 87077; 87186; 93005; 93306; 97161; 99291; C9113; J0456; J0690; J0696; J3490; J7030; J7060; P9047

== ENCOUNTER 2019-06-17 06:21 | Emergency (ER) | payer OTHER, MEDICAID ==
[~2019-06-17] VITALS: Ht 182.9 cm; Wt 79.0 kg
[2019-06-17 08:31] LABS: CHLORIDE 113 mEq/L (98-107)
[2019-06-17 08:34] LABS: INR 1.2; PROTHROMBIN TIME 12.2 sec (9.6-11.0)
[2019-06-17 08:35] LABS: BASOPHILS % 0.4 % (0.0-2.0); EOSINOPHILS % 2.8 % (0.0-5.0); HEMATOCRIT. 26.9 % (42.0-52.0); HEMOGLOBIN. 8.9 g/dL (14.0-18.0); LYMPHOCYTES % 24.3 % (20.0-50.0); MEAN CORPUSCULAR HEMOGLOBIN 28.1 pg (28.0-32.0); MEAN CORPUSCULAR VOLUME 85.3 fL (80.0-94.0); MEAN PLATELET VOLUME 8.3 fl (7.4-10.4); MONOCYTES % 12.3 % (2.0-8.0); NEUTROPHILS % 60.2 % (40.0-76.0); PLATELET 86 x1000/uL (130-400); RED BLOOD CELL COUNT 3.15 mill/uL (4.7-6.1); RED CELL DISTRIBUTION WIDTH 14.5 % (11.6-14.6)
[2019-06-17] MEDS ORDERED: SODIUM BICARBONATE 4% (2.4MEQ) 5ML VIAL IV ONE (09:04)
[2019-06-17] MEDS ORDERED: LIDOCAINE HCL 1% 20ML VIAL (Pyxis) INJ ONE (09:05)
[2019-06-17] MEDS ORDERED: ALBUMIN HUMAN 25GM/100ML (25%) IV ONE (10:30)
[2019-06-17] MEDS ORDERED: ALBUMIN HUMAN 25GM/100ML (25%) IV SCH (10:30)
[2019-06-17 12:24] VITALS: BP 103/75
== END 2019-06-17 12:26 | disposition home or self-care (01) ==
LOC: ER 06:21
DX: K70.31 Alcoholic cirrhosis of liver with ascites (principal); F10.21 Alcohol dependence, in remission; I10 Essential (primary) hypertension
CPT/HCPCS: 36415; 49083; 80053; 85025; 85610; 99285; J3490; P9047

== ENCOUNTER 2019-06-21 06:17 | Emergency (ER) | payer OTHER, MEDICAID ==
[~2019-06-21] VITALS: Ht 182.9 cm; Wt 80.0 kg
[2019-06-21 07:52] LABS: BASOPHILS % 0.7 % (0.0-2.0); EOSINOPHILS % 2.9 % (0.0-5.0); HEMATOCRIT. 26.2 % (42.0-52.0); HEMOGLOBIN. 8.6 g/dL (14.0-18.0); LYMPHOCYTES % 24.3 % (20.0-50.0); MEAN CORPUSCULAR HEMOGLOBIN 28.2 pg (28.0-32.0); MEAN CORPUSCULAR VOLUME 85.9 fL (80.0-94.0); MEAN PLATELET VOLUME 8.1 fl (7.4-10.4); MONOCYTES % 8.9 % (2.0-8.0); NEUTROPHILS % 63.2 % (40.0-76.0); PLATELET 104 x1000/uL (130-400); RED BLOOD CELL COUNT 3.05 mill/uL (4.7-6.1); RED CELL DISTRIBUTION WIDTH 14.8 % (11.6-14.6)
[2019-06-21 07:59] LABS: CHLORIDE 113 mEq/L (98-107)
[2019-06-21 08:02] LABS: INR 1.2
[2019-06-21 10:17] VITALS: BP 112/56
== END 2019-06-21 10:20 | disposition home or self-care (01) ==
LOC: ER 06:17
DX: R18.8 Other ascites (principal); K72.90 Hepatic failure, unspecified without coma; F17.200 Nicotine dependence, unspecified, uncomplicated; Z79.899 Other long term (current) drug therapy
CPT/HCPCS: 36415; 49083; 80053; 85025; 85610; 87070; 87075; 87205; 89050; 99285; J3490

== ENCOUNTER 2019-06-28 07:14 | Emergency (ER) | payer OTHER, MEDICAID ==
[~2019-06-28] VITALS: Ht 182.9 cm; Wt 79.0 kg
[2019-06-28 08:55] LABS: BASOPHILS % 0.5 % (0.0-2.0); EOSINOPHILS % 0.8 % (0.0-5.0); HEMATOCRIT. 28.2 % (42.0-52.0); HEMOGLOBIN. 9.3 g/dL (14.0-18.0); LYMPHOCYTES % 21.3 % (20.0-50.0); MEAN CORPUSCULAR HEMOGLOBIN 28.5 pg (28.0-32.0); MEAN CORPUSCULAR VOLUME 85.7 fL (80.0-94.0); MEAN PLATELET VOLUME 8.2 fl (7.4-10.4); MONOCYTES % 14.2 % (2.0-8.0); NEUTROPHILS % 63.2 % (40.0-76.0); PLATELET 98 x1000/uL (130-400); RED BLOOD CELL COUNT 3.29 mill/uL (4.7-6.1); RED CELL DISTRIBUTION WIDTH 15.3 % (11.6-14.6)
[2019-06-28 09:01] LABS: CHLORIDE 113 mEq/L (98-107)
[2019-06-28 09:04] LABS: INR 1.1; PARTIAL THROMBOPLASTIN TIME 28.1 sec (23.4-31.0); PROTHROMBIN TIME 11.6 sec (9.6-11.0)
[2019-06-28] MEDS ORDERED: LIDOCAINE HCL 1% 20ML VIAL (Pyxis) INJ ONE (09:34)
[2019-06-28] MEDS ORDERED: SODIUM BICARBONATE 4% (2.4MEQ) 5ML VIAL IV ONE (09:35)
[2019-06-28 11:38] VITALS: BP 109/63
== END 2019-06-28 12:05 | disposition home or self-care (01) ==
LOC: ER 07:14
DX: K72.90 Hepatic failure, unspecified without coma (principal); R18.8 Other ascites
CPT/HCPCS: 36415; 49083; 71045; 80053; 83690; 83880; 85025; 85610; 85730; 99285; J3490; 99284

== ENCOUNTER 2019-07-05 06:07 | Emergency (ER) | payer OTHER, MEDICAID ==
[~2019-07-05] VITALS: Ht 182.9 cm; Wt 80.0 kg
[2019-07-05 06:54] LABS: BASOPHILS % 1.1 % (0.0-2.0); EOSINOPHILS % 2.4 % (0.0-5.0); HEMATOCRIT. 28.3 % (42.0-52.0); HEMOGLOBIN. 9.4 g/dL (14.0-18.0); LYMPHOCYTES % 23.6 % (20.0-50.0); MEAN CORPUSCULAR HEMOGLOBIN 28.3 pg (28.0-32.0); MEAN CORPUSCULAR VOLUME 85.7 fL (80.0-94.0); MEAN PLATELET VOLUME 7.6 fl (7.4-10.4); MONOCYTES % 12.7 % (2.0-8.0); NEUTROPHILS % 60.2 % (40.0-76.0); PLATELET 121 x1000/uL (130-400); RED BLOOD CELL COUNT 3.31 mill/uL (4.7-6.1); RED CELL DISTRIBUTION WIDTH 15.6 % (11.6-14.6)
[2019-07-05 07:01] LABS: CHLORIDE 113 mEq/L (98-107)
[2019-07-05 07:02] LABS: INR 1.1; PROTHROMBIN TIME 11.4 sec (9.6-11.0)
[2019-07-05] MEDS ORDERED: SODIUM BICARBONATE 4% (2.4MEQ) 5ML VIAL IV ONE (07:40)
[2019-07-05] MEDS ORDERED: LIDOCAINE HCL 1% 20ML VIAL (Pyxis) INJ ONE (07:40)
[2019-07-05 08:45] VITALS: BP 105/66
== END 2019-07-05 09:36 | disposition home or self-care (01) ==
LOC: ER 06:07
DX: K74.60 Unspecified cirrhosis of liver (principal); F17.200 Nicotine dependence, unspecified, uncomplicated
CPT/HCPCS: 36415; 49083; 80053; 85025; 85610; 99285; J3490; 99283

== ENCOUNTER 2019-07-11 06:01 | Emergency (ER) | payer OTHER, MEDICAID ==
[~2019-07-11] VITALS: Ht 182.9 cm; Wt 80.0 kg
[2019-07-11 07:03] LABS: BASOPHILS % 1.1 % (0.0-2.0); EOSINOPHILS % 2.3 % (0.0-5.0); HEMATOCRIT. 31.7 % (42.0-52.0); HEMOGLOBIN. 10.3 g/dL (14.0-18.0); LYMPHOCYTES % 25.5 % (20.0-50.0); MEAN CORPUSCULAR HEMOGLOBIN 27.9 pg (28.0-32.0); MEAN CORPUSCULAR VOLUME 86.1 fL (80.0-94.0); MEAN PLATELET VOLUME 8.2 fl (7.4-10.4); MONOCYTES % 11.7 % (2.0-8.0); NEUTROPHILS % 59.4 % (40.0-76.0); PLATELET 122 x1000/uL (130-400); RED BLOOD CELL COUNT 3.68 mill/uL (4.7-6.1); RED CELL DISTRIBUTION WIDTH 15.6 % (11.6-14.6)
[2019-07-11 07:10] LABS: CHLORIDE 109 mEq/L (98-107)
[2019-07-11 07:16] LABS: CLARITY URINE CLOUDY (CLEAR); COLOR URINE DARK YELLOW (YELLOW); KETONES URINE TRACE (NEGATIVE); LEUKOCYTE ESTERASE URINE 1+ (NEGATIVE); NITRITE URINE NEGATIVE (NEGATIVE); OCCULT BLOOD URINE NEGATIVE (NEGATIVE); PROTEIN URINE 1+ (NEGATIVE); SPECIFIC GRAVITY URINE 1.023 (1.005-1.030)
[2019-07-11 07:30] LABS: INR 1.1; PROTHROMBIN TIME 11.7 sec (9.6-11.0)
[2019-07-11 07:44] VITALS: BP 136/73
[2019-07-11] MEDS ORDERED: ALBUMIN HUMAN 12.5GM/50ML (25%) IV NR (08:00)
[2019-07-11] MEDS ORDERED: SODIUM BICARBONATE 4% (2.4MEQ) 5ML VIAL IV ONE (08:21)
[2019-07-11] MEDS ORDERED: LIDOCAINE HCL 1% 20ML VIAL (Pyxis) INJ ONE (08:21)
[2019-07-11] MEDS ORDERED: CEFTRIAXONE 1 G PREMIX 50 ML IV ONE (08:30)
== END 2019-07-11 10:40 | disposition home or self-care (01) ==
LOC: ER 06:01
DX: K70.31 Alcoholic cirrhosis of liver with ascites (principal); R60.0 Localized edema; N39.0 Urinary tract infection, site not specified; D69.6 Thrombocytopenia, unspecified; E88.09 Other disorders of plasma-protein metabolism, not elsewhere classified; D64.9 Anemia, unspecified; F17.210 Nicotine dependence, cigarettes, uncomplicated
CPT/HCPCS: 36415; 49083; 80053; 81003; 83690; 85025; 85610; 96374; 99285; J0696; J3490; P9047

== ENCOUNTER 2019-07-17 06:01 | Emergency (ER) | payer OTHER, MEDICAID ==
[~2019-07-17] VITALS: Ht 182.9 cm; Wt 80.0 kg
[2019-07-17] MEDS ORDERED: LIDOCAINE HCL 1% 20ML VIAL (Pyxis) INJ ONE (06:59)
[2019-07-17] MEDS ORDERED: SODIUM BICARBONATE 4% (2.4MEQ) 5ML VIAL IV ONE (06:59)
[2019-07-17 07:06] LABS: BASOPHILS % 0.9 % (0.0-2.0); EOSINOPHILS % 2.2 % (0.0-5.0); HEMATOCRIT. 28.7 % (42.0-52.0); HEMOGLOBIN. 9.5 g/dL (14.0-18.0); LYMPHOCYTES % 23.5 % (20.0-50.0); MEAN CORPUSCULAR HEMOGLOBIN 28.4 pg (28.0-32.0); MEAN CORPUSCULAR VOLUME 85.6 fL (80.0-94.0); MEAN PLATELET VOLUME 7.8 fl (7.4-10.4); MONOCYTES % 13.2 % (2.0-8.0); NEUTROPHILS % 60.2 % (40.0-76.0); PLATELET 91 x1000/uL (130-400); RED BLOOD CELL COUNT 3.35 mill/uL (4.7-6.1); RED CELL DISTRIBUTION WIDTH 15.3 % (11.6-14.6)
[2019-07-17 07:09] LABS: CHLORIDE 111 mEq/L (98-107)
[2019-07-17 07:29] LABS: INR 1.1; PROTHROMBIN TIME 11.4 sec (9.6-11.0)
[2019-07-17 10:59] VITALS: BP 123/78
== END 2019-07-17 11:10 | disposition home or self-care (01) ==
LOC: ER 06:01
DX: R18.8 Other ascites (principal); K74.60 Unspecified cirrhosis of liver; D64.9 Anemia, unspecified; F17.210 Nicotine dependence, cigarettes, uncomplicated
CPT/HCPCS: 36415; 49083; 80053; 85025; 85610; 99285; J3490

== ENCOUNTER 2019-07-22 05:54 | Emergency (ER) | payer OTHER, MEDICAID ==
[~2019-07-22] VITALS: Ht 182.9 cm; Wt 80.0 kg
[2019-07-22 07:55] LABS: BASOPHILS % 0.7 % (0.0-2.0); EOSINOPHILS % 2.4 % (0.0-5.0); HEMATOCRIT. 30.2 % (42.0-52.0); HEMOGLOBIN. 9.8 g/dL (14.0-18.0); LYMPHOCYTES % 23.7 % (20.0-50.0); MEAN CORPUSCULAR HEMOGLOBIN 28.1 pg (28.0-32.0); MEAN CORPUSCULAR VOLUME 86.2 fL (80.0-94.0); MEAN PLATELET VOLUME 8.2 fl (7.4-10.4); NEUTROPHILS % 60.2 % (40.0-76.0); PLATELET 101 x1000/uL (130-400); RED CELL DISTRIBUTION WIDTH 15.9 % (11.6-14.6)
[2019-07-22 07:56] LABS: CLARITY URINE CLEAR (CLEAR); KETONES URINE NEGATIVE (NEGATIVE); LEUKOCYTE ESTERASE URINE 1+ (NEGATIVE); NITRITE URINE NEGATIVE (NEGATIVE); OCCULT BLOOD URINE NEGATIVE (NEGATIVE); PH URINE 5.5 (4.5-8.0); PROTEIN URINE NEGATIVE (NEGATIVE); SPECIFIC GRAVITY URINE 1.025 (1.005-1.030); UROBILINOGEN URINE 0.2 E.U./dL (0.2-1.0)
[2019-07-22 07:57] LABS: COLOR URINE DARK YELLOW (YELLOW)
[2019-07-22 07:58] LABS: CHLORIDE 112 mEq/L (98-107)
[2019-07-22 07:59] LABS: INR 1.1; PROTHROMBIN TIME 11.1 sec (9.6-11.0)
[2019-07-22] MEDS ORDERED: LIDOCAINE HCL 1% 20ML VIAL (Pyxis) INJ ONE (08:33)
[2019-07-22] MEDS ORDERED: SODIUM BICARBONATE 4% (2.4MEQ) 5ML VIAL IV ONE (08:34)
[2019-07-22 10:12] VITALS: BP 131/69
== END 2019-07-22 10:34 | disposition home or self-care (01) ==
LOC: ER 05:54
DX: K76.9 Liver disease, unspecified (principal); R18.8 Other ascites
CPT/HCPCS: 36415; 49083; 80053; 81003; 85025; 85610; 86850; 86900; 86901; 99284; J3490

== ENCOUNTER 2019-07-26 06:06 | Emergency (ER) | payer MEDICARE, OTHER, MEDICAID ==
[~2019-07-26] VITALS: Ht 167.6 cm; Wt 79.0 kg
[2019-07-26 08:53] LABS: BASOPHILS % 0.3 % (0.0-2.0); HEMATOCRIT. 30.3 % (42.0-52.0); HEMOGLOBIN. 9.9 g/dL (14.0-18.0); MEAN CORPUSCULAR HEMOGLOBIN 28.5 pg (28.0-32.0); MEAN PLATELET VOLUME 8.1 fl (7.4-10.4); MONOCYTES % 13.9 % (2.0-8.0); NEUTROPHILS % 66.8 % (40.0-76.0); PLATELET 94 x1000/uL (130-400); RED BLOOD CELL COUNT 3.48 mill/uL (4.7-6.1); RED CELL DISTRIBUTION WIDTH 16.1 % (11.6-14.6)
[2019-07-26 09:10] LABS: INR 1.1; PARTIAL THROMBOPLASTIN TIME 28.6 sec (23.4-31.0); PROTHROMBIN TIME 11.4 sec (9.6-11.0)
[2019-07-26] MEDS ORDERED: SODIUM BICARBONATE 4% (2.4MEQ) 5ML VIAL IV ONE (09:21)
[2019-07-26] MEDS ORDERED: LIDOCAINE HCL 1% 20ML VIAL (Pyxis) INJ ONE (09:22)
[2019-07-26 12:40] VITALS: BP 130/70
== END 2019-07-26 12:43 | disposition home or self-care (01) ==
LOC: ER 06:06
DX: R18.8 Other ascites (principal); R06.00 Dyspnea, unspecified; F17.290 Nicotine dependence, other tobacco product, uncomplicated
CPT/HCPCS: 36415; 49083; 85025; 85610; 85730; 99285; J3490

== ENCOUNTER 2019-08-01 05:54 | Emergency (ER) | payer MEDICARE, OTHER, MEDICAID ==
[~2019-08-01] VITALS: Ht 182.9 cm; Wt 80.0 kg
[2019-08-01 07:25] LABS: BASOPHILS % 0.7 % (0.0-2.0); EOSINOPHILS % 2.7 % (0.0-5.0); HEMATOCRIT. 28.9 % (42.0-52.0); HEMOGLOBIN. 9.6 g/dL (14.0-18.0); LYMPHOCYTES % 20.9 % (20.0-50.0); MEAN CORPUSCULAR HEMOGLOBIN 28.6 pg (28.0-32.0); MEAN CORPUSCULAR VOLUME 86.1 fL (80.0-94.0); MEAN PLATELET VOLUME 8.2 fl (7.4-10.4); NEUTROPHILS % 61.7 % (40.0-76.0); PLATELET 103 x1000/uL (130-400); RED BLOOD CELL COUNT 3.35 mill/uL (4.7-6.1); RED CELL DISTRIBUTION WIDTH 15.9 % (11.6-14.6)
[2019-08-01 07:30] LABS: CHLORIDE 114 mEq/L (98-107)
[2019-08-01 07:48] LABS: INR 1.1; PROTHROMBIN TIME 11.5 sec (9.6-11.0)
[2019-08-01] MEDS ORDERED: SODIUM BICARBONATE 4% (2.4MEQ) 5ML VIAL IV ONE (07:59)
[2019-08-01] MEDS ORDERED: LIDOCAINE HCL 1% 20ML VIAL (Pyxis) INJ ONE (07:59)
[2019-08-01 10:07] VITALS: BP 112/72
== END 2019-08-01 10:07 | disposition home or self-care (01) ==
LOC: ER 05:54
DX: R18.8 Other ascites (principal); F17.210 Nicotine dependence, cigarettes, uncomplicated; K76.9 Liver disease, unspecified
CPT/HCPCS: 36415; 49083; 80053; 85025; 85610; 99285; J3490

== ENCOUNTER 2019-08-08 05:49 | Emergency (ER) | payer MEDICARE, OTHER, MEDICAID ==
[~2019-08-08] VITALS: Ht 182.9 cm; Wt 79.5 kg
[2019-08-08 06:43] LABS: BASOPHILS % 0.6 % (0.0-2.0); EOSINOPHILS % 3.2 % (0.0-5.0); HEMATOCRIT. 29.8 % (42.0-52.0); HEMOGLOBIN. 9.8 g/dL (14.0-18.0); LYMPHOCYTES % 19.8 % (20.0-50.0); MEAN CORPUSCULAR HEMOGLOBIN 28.4 pg (28.0-32.0); MEAN CORPUSCULAR VOLUME 86.3 fL (80.0-94.0); MEAN PLATELET VOLUME 8.3 fl (7.4-10.4); NEUTROPHILS % 66.4 % (40.0-76.0); PLATELET 108 x1000/uL (130-400); RED BLOOD CELL COUNT 3.45 mill/uL (4.7-6.1); RED CELL DISTRIBUTION WIDTH 15.7 % (11.6-14.6)
[2019-08-08 06:46] LABS: CHLORIDE 114 mEq/L (98-107)
[2019-08-08 06:48] LABS: INR 1.1; PROTHROMBIN TIME 11.2 sec (9.6-11.0)
[2019-08-08] MEDS ORDERED: LIDOCAINE HCL 1% 20ML VIAL (Pyxis) INJ ONE (07:36)
[2019-08-08] MEDS ORDERED: SODIUM BICARBONATE 4% (2.4MEQ) 5ML VIAL IV ONE (07:36)
[2019-08-08 09:28] VITALS: BP 117/83
== END 2019-08-08 09:41 | disposition home or self-care (01) ==
LOC: ER 05:49
DX: R18.8 Other ascites (principal); L30.9 Dermatitis, unspecified; F17.210 Nicotine dependence, cigarettes, uncomplicated
CPT/HCPCS: 36415; 49083; 80053; 85025; 85610; 99285; 99406; J3490

== ENCOUNTER 2019-08-13 05:45 | Emergency (ER) | payer MEDICARE, OTHER, MEDICAID ==
[~2019-08-13] VITALS: Ht 182.9 cm; Wt 80.0 kg
[2019-08-13 06:47] LABS: BASOPHILS % 0.6 % (0.0-2.0); EOSINOPHILS % 2.8 % (0.0-5.0); HEMATOCRIT. 28.4 % (42.0-52.0); HEMOGLOBIN. 9.3 g/dL (14.0-18.0); LYMPHOCYTES % 20.5 % (20.0-50.0); MEAN CORPUSCULAR HEMOGLOBIN 28.4 pg (28.0-32.0); MEAN CORPUSCULAR VOLUME 86.9 fL (80.0-94.0); MEAN PLATELET VOLUME 7.7 fl (7.4-10.4); MONOCYTES % 12.2 % (2.0-8.0); NEUTROPHILS % 63.9 % (40.0-76.0); PLATELET 86 x1000/uL (130-400); RED BLOOD CELL COUNT 3.27 mill/uL (4.7-6.1); RED CELL DISTRIBUTION WIDTH 15.8 % (11.6-14.6)
[2019-08-13 06:53] LABS: CHLORIDE 112 mEq/L (98-107)
[2019-08-13] MEDS ORDERED: ALBUTEROL (0.083%) 2.5MG/3ML NEB HHN STA (07:08)
[2019-08-13 07:12] LABS: INR 1.1; PROTHROMBIN TIME 11.4 sec (9.6-11.0)
[2019-08-13] MEDS ORDERED: SODIUM POLYSTYRENE SULFONATE 15 G/60 ML BOT PO ONE (07:15)
[2019-08-13] MEDS ORDERED: SODIUM BICARBONATE 4% (2.4MEQ) 5ML VIAL IV ONE (07:30)
[2019-08-13] MEDS ORDERED: LIDOCAINE HCL 1% 20ML VIAL (Pyxis) INJ ONE (07:30)
[2019-08-13 09:33] VITALS: BP 145/64
== END 2019-08-13 10:11 | disposition home or self-care (01) ==
LOC: ER 05:45
DX: R18.8 Other ascites (principal); E87.5 Hyperkalemia; D64.9 Anemia, unspecified; F17.290 Nicotine dependence, other tobacco product, uncomplicated; Z87.19 Personal history of other diseases of the digestive system; Z79.899 Other long term (current) drug therapy
CPT/HCPCS: 36415; 49083; 80053; 85025; 85610; 94640; 99285; 99406; J3490; J7611

== ENCOUNTER 2019-08-19 07:14 | Emergency (ER) | payer MEDICARE, OTHER, MEDICAID ==
[~2019-08-19] VITALS: Ht 182.9 cm; Wt 79.0 kg
[2019-08-19 09:55] LABS: BASOPHILS % 0.6 % (0.0-2.0); EOSINOPHILS % 1.8 % (0.0-5.0); HEMOGLOBIN. 10.6 g/dL (14.0-18.0); LYMPHOCYTES % 18.8 % (20.0-50.0); MEAN CORPUSCULAR HEMOGLOBIN 28.1 pg (28.0-32.0); MEAN CORPUSCULAR VOLUME 85.2 fL (80.0-94.0); MEAN PLATELET VOLUME 8.3 fl (7.4-10.4); MONOCYTES % 9.2 % (2.0-8.0); NEUTROPHILS % 69.6 % (40.0-76.0); PLATELET 110 x1000/uL (130-400); RED BLOOD CELL COUNT 3.76 mill/uL (4.7-6.1); RED CELL DISTRIBUTION WIDTH 15.7 % (11.6-14.6)
[2019-08-19 10:00] LABS: CHLORIDE 111 mEq/L (98-107); INR 1.1; PROTHROMBIN TIME 11.1 sec (9.6-11.0)
[2019-08-19 13:13] VITALS: BP 121/68
== END 2019-08-19 13:14 | disposition home or self-care (01) ==
LOC: ER 07:14
DX: K74.60 Unspecified cirrhosis of liver (principal); R18.8 Other ascites; R03.0 Elevated blood-pressure reading, without diagnosis of hypertension; F17.210 Nicotine dependence, cigarettes, uncomplicated
CPT/HCPCS: 36415; 49083; 80053; 85025; 85610; 87070; 87075; 87205; 89050; 99285; J3490

== ENCOUNTER 2019-08-23 07:29 | Emergency (ER) | payer BC, OTHER, MEDICAID ==
[~2019-08-23] VITALS: Ht 182.9 cm; Wt 87.7 kg
[2019-08-23 08:21] LABS: BASOPHILS % 1.5 % (0.0-2.0); HEMOGLOBIN. 9.5 g/dL (14.0-18.0); LYMPHOCYTES % 18.7 % (20.0-50.0); MEAN CORPUSCULAR VOLUME 85.4 fL (80.0-94.0); MEAN PLATELET VOLUME 7.8 fl (7.4-10.4); MONOCYTES % 11.8 % (2.0-8.0); PLATELET 107 x1000/uL (130-400); RED BLOOD CELL COUNT 3.39 mill/uL (4.7-6.1); RED CELL DISTRIBUTION WIDTH 15.1 % (11.6-14.6)
[2019-08-23] MEDS ORDERED: LIDOCAINE HCL 1% 20ML VIAL (Pyxis) INJ ONE (08:21)
[2019-08-23] MEDS ORDERED: SODIUM BICARBONATE 4% (2.4MEQ) 5ML VIAL IV ONE (08:22)
[2019-08-23 08:26] LABS: CHLORIDE 109 mEq/L (98-107)
[2019-08-23 08:30] LABS: INR 1.2; PROTHROMBIN TIME 11.9 sec (9.6-11.0)
[2019-08-23 11:08] VITALS: BP 117/62
== END 2019-08-23 11:34 | disposition home or self-care (01) ==
LOC: ER 07:29
DX: R18.8 Other ascites (principal); R06.02 Shortness of breath; F17.200 Nicotine dependence, unspecified, uncomplicated; Z87.19 Personal history of other diseases of the digestive system
CPT/HCPCS: 36415; 49083; 80053; 85025; 85610; 99285; J3490; 99284

== ENCOUNTER 2019-08-29 06:05 | Emergency (ER) | payer BC, OTHER, MEDICAID ==
[~2019-08-29] VITALS: Ht 182.9 cm; Wt 86.0 kg
[2019-08-29] MEDS ORDERED: LIDOCAINE HCL 1% 20ML VIAL (Pyxis) INJ ONE (07:24)
[2019-08-29] MEDS ORDERED: SODIUM BICARBONATE 4% (2.4MEQ) 5ML VIAL IV ONE (07:24)
[2019-08-29 08:24] LABS: BASOPHILS % 0.8 % (0.0-2.0); EOSINOPHILS % 1.9 % (0.0-5.0); HEMATOCRIT. 28.1 % (42.0-52.0); HEMOGLOBIN. 9.3 g/dL (14.0-18.0); LYMPHOCYTES % 17.7 % (20.0-50.0); MEAN CORPUSCULAR HEMOGLOBIN 28.3 pg (28.0-32.0); MEAN CORPUSCULAR VOLUME 85.5 fL (80.0-94.0); MEAN PLATELET VOLUME 8.1 fl (7.4-10.4); MONOCYTES % 10.8 % (2.0-8.0); NEUTROPHILS % 68.8 % (40.0-76.0); PLATELET 105 x1000/uL (130-400); RED BLOOD CELL COUNT 3.29 mill/uL (4.7-6.1); RED CELL DISTRIBUTION WIDTH 15.1 % (11.6-14.6)
[2019-08-29 08:31] LABS: CHLORIDE 110 mEq/L (98-107)
[2019-08-29 08:33] LABS: INR 1.1; PROTHROMBIN TIME 11.4 sec (9.6-11.0)
[2019-08-29 09:38] VITALS: BP 110/52
== END 2019-08-29 10:16 | disposition home or self-care (01) ==
LOC: ER 06:05
DX: R18.8 Other ascites (principal); K76.9 Liver disease, unspecified
CPT/HCPCS: 36415; 49083; 80053; 85025; 85610; 87070; 87075; 87205; 89050; 99285; J3490

== ENCOUNTER 2019-09-05 05:51 | Emergency (ER) | payer BC, OTHER, MEDICAID ==
[~2019-09-05] VITALS: Ht 182.9 cm; Wt 79.0 kg
[2019-09-05 06:58] LABS: CHLORIDE 111 mEq/L (98-107)
[2019-09-05 06:59] LABS: BASOPHILS % 0.4 % (0.0-2.0); EOSINOPHILS % 1.6 % (0.0-5.0); HEMATOCRIT. 29.6 % (42.0-52.0); HEMOGLOBIN. 9.8 g/dL (14.0-18.0); LYMPHOCYTES % 17.1 % (20.0-50.0); MEAN CORPUSCULAR HEMOGLOBIN 28.4 pg (28.0-32.0); MEAN CORPUSCULAR VOLUME 85.4 fL (80.0-94.0); MEAN PLATELET VOLUME 7.6 fl (7.4-10.4); MONOCYTES % 11.7 % (2.0-8.0); NEUTROPHILS % 69.2 % (40.0-76.0); PLATELET 109 x1000/uL (130-400); RED BLOOD CELL COUNT 3.46 mill/uL (4.7-6.1); RED CELL DISTRIBUTION WIDTH 14.8 % (11.6-14.6)
[2019-09-05 07:06] LABS: INR 1.2; PROTHROMBIN TIME 12.4 sec (9.6-11.0)
[2019-09-05] MEDS ORDERED: LIDOCAINE HCL 1% 20ML VIAL (Pyxis) INJ ONE (07:49)
[2019-09-05] MEDS ORDERED: SODIUM BICARBONATE 4% (2.4MEQ) 5ML VIAL IV ONE (07:49)
[2019-09-05 09:45] VITALS: BP 101/74
== END 2019-09-05 10:10 | disposition home or self-care (01) ==
LOC: ER 05:51
DX: R18.8 Other ascites (principal); K76.9 Liver disease, unspecified; F17.210 Nicotine dependence, cigarettes, uncomplicated; Z71.6 Tobacco abuse counseling
CPT/HCPCS: 36415; 49083; 80053; 83690; 85025; 85610; 87070; 87075; 87205; 89050; 99285; J3490

== ENCOUNTER 2019-09-12 06:43 | Emergency (ER) | payer BC, OTHER, MEDICAID ==
[~2019-09-12] VITALS: Ht 182.9 cm; Wt 75.0 kg
[2019-09-12] MEDS ORDERED: LIDOCAINE HCL 1% 20ML VIAL (Pyxis) INJ ONE (08:55)
[2019-09-12] MEDS ORDERED: SODIUM BICARBONATE 4% (2.4MEQ) 5ML VIAL IV ONE (08:55)
[2019-09-12 09:26] LABS: INR 1.1; PROTHROMBIN TIME 11.7 sec (9.6-11.0)
[2019-09-12 10:00] VITALS: BP 137/69
== END 2019-09-12 10:34 | disposition home or self-care (01) ==
LOC: ER 06:43
DX: R18.8 Other ascites (principal); K74.60 Unspecified cirrhosis of liver; F17.210 Nicotine dependence, cigarettes, uncomplicated
CPT/HCPCS: 36415; 49083; 85610; 99284; J3490

== ENCOUNTER 2019-09-18 06:11 | Emergency (ER) | payer BC, OTHER, MEDICAID ==
[~2019-09-18] VITALS: Ht 182.9 cm; Wt 79.0 kg
[2019-09-18 07:16] LABS: BASOPHILS % 0.3 % (0.0-2.0); EOSINOPHILS % 0.6 % (0.0-5.0); HEMATOCRIT. 27.3 % (42.0-52.0); HEMOGLOBIN. 8.9 g/dL (14.0-18.0); LYMPHOCYTES % 11.8 % (20.0-50.0); MEAN CORPUSCULAR HEMOGLOBIN 27.7 pg (28.0-32.0); MEAN CORPUSCULAR VOLUME 85.5 fL (80.0-94.0); MEAN PLATELET VOLUME 7.4 fl (7.4-10.4); MONOCYTES % 11.7 % (2.0-8.0); NEUTROPHILS % 75.6 % (40.0-76.0); PLATELET 101 x1000/uL (130-400); RED BLOOD CELL COUNT 3.19 mill/uL (4.7-6.1); RED CELL DISTRIBUTION WIDTH 14.8 % (11.6-14.6)
[2019-09-18 07:21] LABS: CHLORIDE 108 mEq/L (98-107)
[2019-09-18 07:31] LABS: INR 1.2; PROTHROMBIN TIME 12.2 sec (9.6-11.0)
[2019-09-18] MEDS ORDERED: LIDOCAINE HCL 1% 20ML VIAL (Pyxis) INJ ONE (08:14)
[2019-09-18] MEDS ORDERED: SODIUM BICARBONATE 4% (2.4MEQ) 5ML VIAL IV ONE (08:15)
[2019-09-18 11:59] VITALS: BP 111/62
[2019-09-18 12:11] LABS: CLARITY URINE CLEAR (CLEAR); COLOR URINE YELLOW (YELLOW); KETONES URINE TRACE (NEGATIVE); LEUKOCYTE ESTERASE URINE TRACE (NEGATIVE); NITRITE URINE NEGATIVE (NEGATIVE); OCCULT BLOOD URINE NEGATIVE (NEGATIVE); PROTEIN URINE NEGATIVE (NEGATIVE); SPECIFIC GRAVITY URINE 1.018 (1.005-1.030); UROBILINOGEN URINE 0.2 E.U./dL (0.2-1.0)
== END 2019-09-18 12:01 | disposition home or self-care (01) ==
LOC: ER 06:11
DX: K70.31 Alcoholic cirrhosis of liver with ascites (principal); E87.8 Other disorders of electrolyte and fluid balance, not elsewhere classified; D64.9 Anemia, unspecified; N28.9 Disorder of kidney and ureter, unspecified
CPT/HCPCS: 36415; 49083; 71045; 80053; 81003; 85025; 85610; 99285; J3490

== ENCOUNTER 2019-09-26 06:41 | Emergency (ER) | payer OTHER, MEDICAID ==
[~2019-09-26] VITALS: Ht 182.9 cm; Wt 80.0 kg
[2019-09-26] MEDS ORDERED: ONDANSETRON HCL 4MG/2ML INJ IV ONE (07:45)
[2019-09-26 08:48] LABS: BASOPHILS % 0.3 % (0.0-2.0); EOSINOPHILS % 0.7 % (0.0-5.0); LYMPHOCYTES % 13.6 % (20.0-50.0); MEAN CORPUSCULAR HEMOGLOBIN 27.7 pg (28.0-32.0); MEAN CORPUSCULAR VOLUME 83.5 fL (80.0-94.0); MEAN PLATELET VOLUME 7.3 fl (7.4-10.4); MONOCYTES % 7.7 % (2.0-8.0); NEUTROPHILS % 77.7 % (40.0-76.0); PLATELET 141 x1000/uL (130-400); RED BLOOD CELL COUNT 3.59 mill/uL (4.7-6.1); RED CELL DISTRIBUTION WIDTH 14.7 % (11.6-14.6)
[2019-09-26 08:56] LABS: INR 1.2; PARTIAL THROMBOPLASTIN TIME 27.8 sec (23.4-31.0); PROTHROMBIN TIME 11.9 sec (9.6-11.0)
[2019-09-26] MEDS ORDERED: SODIUM BICARBONATE 4% (2.4MEQ) 5ML VIAL IV ONE (09:21)
[2019-09-26] MEDS ORDERED: LIDOCAINE HCL 1% 20ML VIAL (Pyxis) INJ ONE (09:21)
[2019-09-26 12:40] VITALS: BP 117/64
[2019-09-27] MEDS ORDERED: OMEP40CA12 PO (22:41)
[2019-09-27] MEDS ORDERED: SPIR25TA6 PO (22:42)
[2019-09-27] MEDS ORDERED: FURO40TA5 PO (22:42)
[2019-09-27] MEDS ORDERED: METO-539 PO (22:43)
== END 2019-09-26 12:47 | disposition home or self-care (01) ==
LOC: ER 06:41
DX: R18.8 Other ascites (principal); K74.60 Unspecified cirrhosis of liver; I10 Essential (primary) hypertension
CPT/HCPCS: 36415; 49083; 85025; 85610; 85730; 96374; 99284; J2405; J3490; Z7610

== ENCOUNTER 2019-09-27 09:41 | Inpatient (IN) | payer OTHER, MEDICAID ==
[~2019-09-27] VITALS: Ht 177.8 cm; Wt 71.7 kg
[2019-09-27 11:20] LABS: BASOPHILS % 0.8 % (0.0-2.0); EOSINOPHILS % 1.5 % (0.0-5.0); HEMATOCRIT. 32.5 % (42.0-52.0); HEMOGLOBIN. 10.6 g/dL (14.0-18.0); LYMPHOCYTES % 17.1 % (20.0-50.0); MEAN CORPUSCULAR HEMOGLOBIN 27.5 pg (28.0-32.0); MEAN CORPUSCULAR VOLUME 84.4 fL (80.0-94.0); MEAN PLATELET VOLUME 7.5 fl (7.4-10.4); MONOCYTES % 7.1 % (2.0-8.0); NEUTROPHILS % 73.5 % (40.0-76.0); PLATELET 149 x1000/uL (130-400); RED BLOOD CELL COUNT 3.85 mill/uL (4.7-6.1); RED CELL DISTRIBUTION WIDTH 14.4 % (11.6-14.6)
[2019-09-27 11:31] LABS: INR 1.2; PROTHROMBIN TIME 11.9 sec (9.6-11.0)
[2019-09-27 11:34] LABS: CHLORIDE 114 mEq/L (98-107)
[2019-09-27 12:11] LABS: ETHANOL BLOOD < 10 mg/dL
[2019-09-27] MEDS ORDERED: SODIUM POLYSTYRENE SULFONATE 15 G/60 ML BOT PO ONE (12:15)
[2019-09-27] MEDS ORDERED: SODIUM BICARBONATE 8.4% 1 MEQ/ML 50ML SYR IV ONE (13:30)
[2019-09-27] MEDS ORDERED: INSULIN REGULAR (HUMULIN R) 300UNITS/3ML IV ONE (13:30)
[2019-09-27] MEDS ORDERED: CALCIUM CHLORIDE 1GM/10ML SYR IV ONE (13:30)
[2019-09-27] MEDS ORDERED: DEXTROSE 50% WATER 50ML SYRINGE IV ONE (13:30)
[2019-09-27 13:38] LABS: CLARITY URINE CLEAR (CLEAR); COLOR URINE YELLOW (YELLOW); KETONES URINE NEGATIVE (NEGATIVE); LEUKOCYTE ESTERASE URINE TRACE (NEGATIVE); NITRITE URINE NEGATIVE (NEGATIVE); OCCULT BLOOD URINE 1+ (NEGATIVE); PH URINE 5.5 (4.5-8.0); PROTEIN URINE NEGATIVE (NEGATIVE); SPECIFIC GRAVITY URINE 1.019 (1.005-1.030); UROBILINOGEN URINE 0.2 E.U./dL (0.2-1.0)
[2019-09-27 13:42] LABS: BG BASE EXCESS -8.2 mmol/L (-2.0-2.0); BG CARBOXYHEMOGLOBIN 0.3 % (0.5-1.5); BG FRACTION INSPIRED OXYGEN 21; BG HCO3 ACT 14.3 mmol/L (22.0-26.0); BG METHEMOGLOBIN 0.1 % (0.0-1.5); BG OXYHEMOGLOBIN 97.6 % (94.0-97.0); BG PCO2 21.7 mmHg (35.0-45.0); BG PH 7.437 (7.350-7.450); BG PO2 117.8 mmHg (75.0-100.0); BG SAMPLE SITE OTHER; BG TOTAL HEMOGLOBIN 10.5 g/dL (12.0-18.0); BG VENT MODE ROOM AIR
[2019-09-27 14:05] LABS: METHADONE URINE SCREEN NEGATIVE (NEGATIVE)
[2019-09-27 14:06] LABS: *AMPHETAMINES SCREEN URINE NEGATIVE (NEGATIVE); *BARBITURATES SCREEN URINE NEGATIVE (NEGATIVE); *BENZODIAZEPINES SCREEN URINE NEGATIVE (NEGATIVE); *COCAINE SCREEN URINE NEGATIVE (NEGATIVE); CANNABINOID URINE SCREEN NEGATIVE (NEGATIVE); OPIATES URINE SCREEN NEGATIVE (NEGATIVE); PHENCYCLIDINE URINE SCREEN NEGATIVE (NEGATIVE)
[2019-09-27] MEDS ORDERED: IPRATROPIUM/ALBUTEROL 0.5-3(2.5)MG/3ML NEB NEB PRN (19:45)
[2019-09-27] MEDS ORDERED: ACETAMINOPHEN 325MG TABLET PO PRN (19:45)
[2019-09-27] MEDS ORDERED: ONDANSETRON HCL 4MG/2ML INJ IV PRN (19:45)
[2019-09-27] MEDS: SODIUM CHLORIDE 0.9% 1,000 ML IV SCH ×2 (21:34→23:57)
[2019-09-27] MEDS: LACTULOSE 20G/30ML UDC PO SCH ×2 (21:44→21:46)
[2019-09-27 22:15] VITALS: BP 124/84
[2019-09-27] MEDS ORDERED: OMEP40CA12 PO (22:41)
[2019-09-27] MEDS ORDERED: SPIR25TA6 PO (22:42)
[2019-09-27] MEDS ORDERED: FURO40TA5 PO (22:42)
[2019-09-27] MEDS ORDERED: METO-539 PO (22:43)
[2019-09-28] VITALS: BP 126/77
[2019-09-28 00:56] LABS: BASOPHILS % 0.3 % (0.0-2.0); EOSINOPHILS % 1.7 % (0.0-5.0); HEMATOCRIT. 29.9 % (42.0-52.0); HEMOGLOBIN. 9.7 g/dL (14.0-18.0); LYMPHOCYTES % 14.3 % (20.0-50.0); MEAN CORPUSCULAR HEMOGLOBIN 27.7 pg (28.0-32.0); MEAN CORPUSCULAR VOLUME 84.8 fL (80.0-94.0); MEAN PLATELET VOLUME 7.2 fl (7.4-10.4); MONOCYTES % 11.3 % (2.0-8.0); NEUTROPHILS % 72.4 % (40.0-76.0); PLATELET 135 x1000/uL (130-400); RED BLOOD CELL COUNT 3.52 mill/uL (4.7-6.1); RED CELL DISTRIBUTION WIDTH 14.4 % (11.6-14.6)
[2019-09-28 01:06] LABS: CHLORIDE 115 mEq/L (98-107)
[2019-09-28 04:00] VITALS: BP 117/62
[2019-09-28] MEDS: LACTULOSE 20G/30ML UDC PO SCH ×3 (05:45→21:20)
[2019-09-28 05:58] LABS: BASOPHILS % 0.6 % (0.0-2.0); EOSINOPHILS % 1.4 % (0.0-5.0); HEMOGLOBIN. 9.5 g/dL (14.0-18.0); LYMPHOCYTES % 16.8 % (20.0-50.0); MEAN CORPUSCULAR HEMOGLOBIN 27.6 pg (28.0-32.0); MEAN CORPUSCULAR VOLUME 84.4 fL (80.0-94.0); MEAN PLATELET VOLUME 7.5 fl (7.4-10.4); MONOCYTES % 10.2 % (2.0-8.0); PLATELET 131 x1000/uL (130-400); RED BLOOD CELL COUNT 3.43 mill/uL (4.7-6.1); RED CELL DISTRIBUTION WIDTH 14.5 % (11.6-14.6)
[2019-09-28 06:54] LABS: CHLORIDE 115 mEq/L (98-107)
[2019-09-28] MEDS ORDERED: KETOROLAC 15MG/ML VIAL IV PRN (07:00)
[2019-09-28 08:00] VITALS: BP 104/60
[2019-09-28] MEDS: FUROSEMIDE 40MG TABLET PO SCH ×2 (09:45→10:10)
[2019-09-28] MEDS: METOPROLOL TARTRATE 50MG TABLET PO SCH ×2 (10:30→21:20)
[2019-09-28] MEDS ORDERED: SPIRONOLACTONE 25MG TABLET PO SCH ×2 (10:30→18:00)
[2019-09-28 12:00] VITALS: BP 131/74
[2019-09-28] MEDS: ENOXAPARIN 80MG/0.8ML SYR SUBCUT SCH ×2 (12:12→21:20)
[2019-09-28 16:00] VITALS: BP 105/64
[2019-09-28 18:18] LABS: SODIUM URINE RANDOM < 5 mEq/L
[2019-09-28 20:00] VITALS: BP 131/75
[2019-09-29] VITALS: BP 99/56
[2019-09-29 04:00] VITALS: BP 98/55
[2019-09-29] MEDS: LACTULOSE 20G/30ML UDC PO SCH ×3 (05:18→22:00)
[2019-09-29 06:01] LABS: BASOPHILS % 0.5 % (0.0-2.0); EOSINOPHILS % 2.8 % (0.0-5.0); HEMATOCRIT. 25.1 % (42.0-52.0); HEMOGLOBIN. 8.2 g/dL (14.0-18.0); LYMPHOCYTES % 19.2 % (20.0-50.0); MEAN CORPUSCULAR HEMOGLOBIN 27.9 pg (28.0-32.0); MEAN CORPUSCULAR VOLUME 85.1 fL (80.0-94.0); MEAN PLATELET VOLUME 7.2 fl (7.4-10.4); MONOCYTES % 9.1 % (2.0-8.0); NEUTROPHILS % 68.4 % (40.0-76.0); PLATELET 112 x1000/uL (130-400); RED BLOOD CELL COUNT 2.94 mill/uL (4.7-6.1); RED CELL DISTRIBUTION WIDTH 14.5 % (11.6-14.6)
[2019-09-29 06:25] LABS: CHLORIDE 115 mEq/L (98-107)
[2019-09-29 08:00] VITALS: BP 92/54
[2019-09-29] MEDS: METOPROLOL TARTRATE 50MG TABLET PO SCH (08:45)
[2019-09-29] MEDS: THIAMINE HCL 100MG TABLET PO SCH (08:45)
[2019-09-29] MEDS: ENOXAPARIN 80MG/0.8ML SYR SUBCUT SCH ×2 (08:45→21:47)
[2019-09-29] MEDS: FOLIC ACID 1MG TABLET PO SCH (08:45)
[2019-09-29 12:00] VITALS: BP 96/50
[2019-09-29] MEDS: MULTIVITAMINS,THER W-MINERALS TABLET PO SCH (15:11)
[2019-09-29 16:00] VITALS: BP 107/56
[2019-09-29 20:00] VITALS: BP 100/54
[2019-09-29] MEDS: METOPROLOL TARTRATE 25MG TABLET PO SCH (21:46)
[2019-09-30] VITALS: BP 115/57
[2019-09-30 04:00] VITALS: BP 89/46
[2019-09-30 05:30] VITALS: BP 101/48
[2019-09-30] MEDS: LACTULOSE 20G/30ML UDC PO SCH ×3 (05:59→21:54)
[2019-09-30 07:06] LABS: BASOPHILS % 0.4 % (0.0-2.0); HEMATOCRIT. 25.9 % (42.0-52.0); HEMOGLOBIN. 8.6 g/dL (14.0-18.0); LYMPHOCYTES % 19.2 % (20.0-50.0); MEAN CORPUSCULAR HEMOGLOBIN 27.9 pg (28.0-32.0); MEAN CORPUSCULAR VOLUME 83.9 fL (80.0-94.0); MEAN PLATELET VOLUME 7.6 fl (7.4-10.4); MONOCYTES % 11.1 % (2.0-8.0); NEUTROPHILS % 67.3 % (40.0-76.0); PLATELET 114 x1000/uL (130-400); RED BLOOD CELL COUNT 3.08 mill/uL (4.7-6.1); RED CELL DISTRIBUTION WIDTH 14.4 % (11.6-14.6)
[2019-09-30 08:16] LABS: CHLORIDE 113 mEq/L (98-107)
[2019-09-30 08:21] LABS: PHOSPHORUS 2.5 mg/dL (2.5-4.9)
[2019-09-30] MEDS: METOPROLOL TARTRATE 25MG TABLET PO SCH ×2 (09:00→21:00)
[2019-09-30] MEDS: ENOXAPARIN 80MG/0.8ML SYR SUBCUT SCH (09:47)
[2019-09-30] MEDS: FOLIC ACID 1MG TABLET PO SCH (09:47)
[2019-09-30] MEDS: MULTIVITAMINS,THER W-MINERALS TABLET PO SCH (09:47)
[2019-09-30] MEDS: THIAMINE HCL 100MG TABLET PO SCH (09:47)
[2019-09-30 10:12] LABS: *CREATININE RANDOM URINE 280.1 mg/dL (Not Estab.); MICROALBUMIN RANDOM URINE 9.5 ug/mL (Not Estab.)
[2019-09-30 16:00] VITALS: BP 91/47
[2019-09-30 20:00] VITALS: BP 100/49
[2019-10-01] VITALS: BP 101/56
[2019-10-01 04:00] VITALS: BP 102/53
[2019-10-01] MEDS: LACTULOSE 20G/30ML UDC PO SCH ×2 (06:28→15:40)
[2019-10-01 07:56] LABS: CHLORIDE 113 mEq/L (98-107)
[2019-10-01 07:59] LABS: BASOPHILS % 0.4 % (0.0-2.0); EOSINOPHILS % 1.4 % (0.0-5.0); HEMATOCRIT. 26.2 % (42.0-52.0); HEMOGLOBIN. 8.8 g/dL (14.0-18.0); LYMPHOCYTES % 15.6 % (20.0-50.0); MEAN CORPUSCULAR VOLUME 83.9 fL (80.0-94.0); MEAN PLATELET VOLUME 7.9 fl (7.4-10.4); MONOCYTES % 11.4 % (2.0-8.0); NEUTROPHILS % 71.2 % (40.0-76.0); PLATELET 110 x1000/uL (130-400); RED BLOOD CELL COUNT 3.12 mill/uL (4.7-6.1); RED CELL DISTRIBUTION WIDTH 14.3 % (11.6-14.6)
[2019-10-01 08:00] VITALS: BP 109/60
[2019-10-01] MEDS: METOPROLOL TARTRATE 25MG TABLET PO SCH (09:00)
[2019-10-01] MEDS: THIAMINE HCL 100MG TABLET PO SCH (09:00)
[2019-10-01] MEDS: MULTIVITAMINS,THER W-MINERALS TABLET PO SCH (09:00)
[2019-10-01] MEDS: FOLIC ACID 1MG TABLET PO SCH (09:00)
[2019-10-01] MEDS ORDERED: DEXT 5%/0.9% NACL 1,000 ML IV ONE (11:00)
[2019-10-01] MEDS ORDERED: SODIUM BICARBONATE 4% (2.4MEQ) 5ML VIAL IV ONE (11:22)
[2019-10-01] MEDS ORDERED: LIDOCAINE HCL 1% 20ML VIAL (Pyxis) INJ ONE (11:22)
[2019-10-01 12:57] VITALS: BP 109/55
[2019-10-01 16:00] VITALS: BP 103/57
[2019-10-01 17:38] VITALS: BP 103/57
== END 2019-10-01 18:18 | disposition home or self-care (01) | DRG 441 ==
LOC: ER 09:41 → 6EST 12:07 → EDBEDREQ 12:10 → EDBEDREQTM 12:10 → EDBEDREQSVC 19:43 → ENRESERV 21:38
PROVIDERS: ADMIT Internal Medicine; ATTEND Internal Medicine
PROC: 0W9G30Z Drainage of Peritoneal Cavity with Drainage Device, Percutaneous Approach (ICD-10-PCS; principal; 2019-10-01)
DX: K72.90 Hepatic failure, unspecified without coma (principal); G92 Toxic encephalopathy; D68.4 Acquired coagulation factor deficiency; E87.2 Acidosis; I85.00 Esophageal varices without bleeding; I82.431 Acute embolism and thrombosis of right popliteal vein; N17.9 Acute kidney failure, unspecified; K76.6 Portal hypertension; I42.0 Dilated cardiomyopathy; I50.22 Chronic systolic (congestive) heart failure; I13.0 Hypertensive heart and chronic kidney disease with heart failure and stage 1 through stage 4 chronic kidney disease, or unspecified chronic kidney disease; E87.3 Alkalosis; K70.31 Alcoholic cirrhosis of liver with ascites; D64.9 Anemia, unspecified; D69.6 Thrombocytopenia, unspecified; R31.9 Hematuria, unspecified; I95.9 Hypotension, unspecified; E87.5 Hyperkalemia; E88.09 Other disorders of plasma-protein metabolism, not elsewhere classified; F10.10 Alcohol abuse, uncomplicated; I25.10 Atherosclerotic heart disease of native coronary artery without angina pectoris; I34.0 Nonrheumatic mitral (valve) insufficiency; I70.0 Atherosclerosis of aorta; K57.30 Diverticulosis of large intestine without perforation or abscess without bleeding; Z79.01 Long term (current) use of anticoagulants; Z87.442 Personal history of urinary calculi; I25.2 Old myocardial infarction; Z87.891 Personal history of nicotine dependence
CPT/HCPCS: 36415; 36600; 49083; 71045; 74176; 76770; 80048; 80053; 80305; 80307; 80320; 80329; 81003; 82043; 82140; 82375; 82570; 82805; 82962; 83735; 83880; 83935; 84100; 84300; 84443; 85025; 93005; 93970; 96374; 97162; 99291; J1650; J1815; J1885; J3490; G0480